=== PATIENT | female | born 1945 | race Caucasian/White ===

== ENCOUNTER 2017-10-13 18:50 | Inpatient (IN) | payer MEDICARE ==
[~2017-10-13] VITALS: Ht 157.5 cm; Wt 70.3 kg
[2017-10-13 19:28] LABS: BASOPHILS 1.3 % (0-2); EOSINOPHILS 2.9 % (0-7); HEMATOCRIT 44.3 % (36.0-48.0); HEMOGLOBIN 14.9 g/dL (12-16); IMMATURE GRANULOCYTES 0.4 % (0-5); LYMPHOCYTES 19.4 % (15-50); MCH 33.6 pg (26.0-34.0); MCHC 33.6 g/dL (31.0-37.0); MCV 99.8 fL (80.0-100.0); MEAN PLATELET VOLUME 9.9 fL (7.4-10.4); MONOCYTES 12.9 % (2-11); NEUTROPHILS 63.1 % (40-80); PLATELET COUNT 218 10x3/uL (130-400); RBC 4.44 10x6/uL (4.00-5.40); RDW 12.7 % (11.5-14.5); WBC 6.8 10x3/uL (4.8-10.8)
[2017-10-13 19:51] LABS: ANION GAP 11.7 mmol/L (8-16); BILIRUBIN - TOTAL 3.56 mg/dL (0.2-1.3); CALCIUM 9.6 mg/dL (8.5-10.1); CARBON DIOXIDE 28.8 mmol/L (21.0-32.0); CREATININE - SERUM 0.9 mg/dL (0.6-1.3); POTASSIUM - SERUM 3.5 mmol/L (3.5-5.1); PROTEIN - SERUM 7.5 g/dL (6.4-8.2)
[2017-10-13 20:11] LABS: BILIRUBIN 1+ (NEGATIVE); COLOR AMBER (YELLOW); GLUCOSE NEGATIVE (NEGATIVE); KETONE SMALL mg/dL (NEGATIVE); NITRITE NEGATIVE (NEGATIVE); PROTEIN NEGATIVE (NEGATIVE)
[2017-10-13 20:12] LABS: APPEARANCE HAZY (CLEAR); RED CELLS - URINE 0-5 /hpf (0-5); SPECIFIC GRAVITY 1.005 (1.005-1.020); WHITE CELLS - URINE 0-5 /hpf (0-5)
[2017-10-13 20:13] LABS: BACTERIA FEW /hpf (NONE SEEN); EPITHELIAL CELLS 0-5 /hpf (0-5)
[2017-10-13 20:14] LABS: MUCUS >1+ /lpf (NONE SEEN)
[2017-10-14] VITALS (17 sets, daily range): BP systolic 87–121; BP diastolic 41–73; BMI 26.2
[2017-10-14 00:31] LABS: UDS - AMPHET NEGATIVE QUAL (NEGATIVE); UDS - BARB NEGATIVE QUAL (NEGATIVE); UDS - BENZO POSITIVE QUAL (NEGATIVE); UDS - COCAINE NEGATIVE QUAL (NEGATIVE); UDS - OPIATE NEGATIVE QUAL (NEGATIVE); UDS - PCP NEGATIVE QUAL (NEGATIVE); UDS - THC NEGATIVE QUAL (NEGATIVE)
[2017-10-15] VITALS (10 sets, daily range): BP systolic 98–128; BP diastolic 54–76; Ht 157.5 cm; Wt 70.3 kg
[2017-10-15 04:11] LABS: EOSINOPHILS 4.8 % (0-7); IMMATURE GRANULOCYTES 0.8 % (0-5); LYMPHOCYTES 27.3 % (15-50); MCH 32.6 pg (26.0-34.0); MCHC 32.6 g/dL (31.0-37.0); MEAN PLATELET VOLUME 10.3 fL (7.4-10.4); MONOCYTES 13.9 % (2-11); NEUTROPHILS 52.2 % (40-80)
[2017-10-15 04:19] LABS: HEMOGLOBIN 11.4 g/dL (12-16); PLATELET COUNT 135 10x3/uL (130-400)
[2017-10-15 04:43] LABS: ANION GAP 11.4 mmol/L (8-16); BILIRUBIN - TOTAL 1.42 mg/dL (0.2-1.3); CALCIUM 7.9 mg/dL (8.5-10.1); CARBON DIOXIDE 25.7 mmol/L (21.0-32.0); CREATININE - SERUM 0.8 mg/dL (0.6-1.3); MAGNESIUM - SERUM 2.4 mg/dL (1.8-2.4); PHOSPHOROUS 3.7 mg/dL (2.5-4.9); POTASSIUM - SERUM 3.1 mmol/L (3.5-5.1)
[2017-10-15 04:51] LABS: ALBUMIN 2.6 g/dL (3.4-5.0); PROTEIN - SERUM 5.1 g/dL (6.4-8.2)
[2017-10-15] MEDS ORDERED: ZYPREXA2.5 MG PO (16:03)
[2017-10-15] MEDS ORDERED: LIBRIUM25 MG PO (16:04)
== END 2017-10-15 14:45 | DRG 897 ==
LOC: D.ER 18:50 → D.ICU 10-14 01:33 → D.EDHOLD 10-14 01:33 → D.ICU 10-14 05:07
PROVIDERS: Family Medicine
DX: F10.231 Alcohol dependence with withdrawal delirium (principal); K70.0 Alcoholic fatty liver; F03.90 Unspecified dementia, unspecified severity, without behavioral disturbance, psychotic disturbance, mood disturbance, and anxiety; R40.2363 Coma scale, best motor response, obeys commands, at hospital admission; R40.2143 Coma scale, eyes open, spontaneous, at hospital admission; R40.2243 Coma scale, best verbal response, confused conversation, at hospital admission

== ENCOUNTER 2017-10-15 14:51 | Inpatient (IN) | payer MEDICARE ==
[~2017-10-15] VITALS: Ht 160 cm; Wt 61.4 kg
--- NOTE | ~2017-10-15 | PN ---
PATIENT:JUDSON COTTON MEDICAL RECORD: [id number] LOCATION:DANA Briscoe ADMISSION DATE: 10/15/17 PROGRESS NOTE DATE OF SERVICE: 10/20/2017 SUBJECTIVE: The patient's case was discussed with staff. She has no new complaint. OBJECTIVE: The patient is in good behavioral control with limited insight about her condition. She does tolerate her medicines well. ASSESSMENT: No change in diagnoses. PLAN: Supportive and educational interventions were made. The patient is awake, alert, very cooperative, but severely impaired cognitively. She has not had any change in her condition since I changed her benzodiazepine from Librium to Klonopin as described in yesterday's note. ASSESSMENT: No change in diagnoses. PLAN: Current medicines will be maintained. Long-term prognosis is guarded. TRANSINT:[id number] Voice Confirmation ID: [id number] DOCUMENT ID: [id number] BRUNILDA JASON MD at 1040 CC: [id number] DICTATION DATE: 10/20/17 1042 COMMAND POST SUPERINTENDENT: 10/20/17 1106 ADM IN [facility] [address] [place] [address]
--- NOTE | ~2017-10-15 | PN ---
PATIENT:JUDSON COTTON MEDICAL RECORD: [id number] LOCATION:DANA SongAinsley ADMISSION DATE: 10/15/17 PROGRESS NOTE DATE OF SERVICE: 11/04/2017 SUBJECTIVE: The patient's case was discussed with staff. She has no new complaint. OBJECTIVE: The patient is in good behavioral control with limited insight about her condition. She continues to be on contact isolation, which she does not follow through with very effectively. ASSESSMENT: No change in diagnoses. PLAN: The patient will be maintained on current medicines. Her long-term prognosis is guarded. TRANSINT:[id number] Voice Confirmation ID: [id number] DOCUMENT ID: [id number] BRUNILDA JASON MD at 1059 CC: [id number] DICTATION DATE: 11/04/17 1059 PATIENT PLACEMENT COORDINATOR: 11/04/17 1108 ADM IN [place] [id number] [place] [address]
--- NOTE | ~2017-10-15 | PN ---
PATIENT:JUDSON COTTON MEDICAL RECORD: [id number] LOCATION:DANA Briscoe ADMISSION DATE: 10/15/17 PROGRESS NOTE DATE OF SERVICE: 10/29/2017 SUBJECTIVE: The patient's case was discussed with staff. She has no new complaint. OBJECTIVE: The patient denies intent to harm herself or others. She generally tolerates her medicines well. Eye contact is fair. ASSESSMENT: No change in diagnoses. PLAN: Current medicines have been reviewed. The patient will have her Zoloft increased. She certainly has some significant character pathology that is present and probably has been lifelong. There is a great deal of manipulating, staff splitting, attention seeking, help rejecting behaviors. As a couple of specific examples when asked if she is having any discomfort, she told me no, but then when she gets her family on the phone or visitation, she says that she has back pain that no one will pay attention to. She also tells me today that she has a headache because she has fallen and hit her head. Staff says that she has not fallen. She has been with them the whole time and it has not happened. She also gets her walker and walks across the room. I observed her as she uses a desk and her walker, gets down on her knees, lays on the floor and then turns over her walker and says she has fallen. She had not fallen. She voluntarily got on the floor and with some assisted, she got up and then continued on her way across the day room. These are just several examples of the kind of behavior I am talking about. I do not think these are going to be very amenable to pharmacologic interventions. 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 She needs 21-snrj-e-day supervision. The behaviors that I am talking about are going to make it complicated wherever she is managed. Unfortunately, her family is concerned whenever she reports something that is not true and then has to call and they are very upset and they have to be reassured that no, she did not fall and no, she is not complaining of any back pain to us. 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 TRANSINT:[id number] Voice Confirmation ID: [id number] DOCUMENT ID: [id number] BRUNILDA JASON MD at 1434 CC: [id number] DICTATION DATE: 10/29/17 1533 CAREER DEVELOPMENT COORDINATOR/TEACHER: 10/29/17 1729 ADM IN [facility] [address] [place] [address]
--- NOTE | ~2017-10-15 | PSY ---
PATIENT NAME:JUDSON COTTON MEDICAL RECORD: [id number] : 43 LOCATION:MarinaXENIA Briscoe7 ADMISSION DATE: 10/15/17 ACCOUNT: [id number] PSYCHIATRIC EVALUATION DATE OF EVALUATION: 10/16/17 PSYCHIATRIC EVALUATION IDENTIFYING DATA: The patient is 72 years old and she is admitted to the hospital on a voluntary basis. CHIEF COMPLAINT: None. HISTORY OF PRESENT ILLNESS: The patient was initially brought to the Emergency Room because of mental status changes. She apparently had been a heavy drinker and her son had gone to the house and emptied out all of her liquor. Apparently, after this, she went into DTs. She subsequently had an admission to the hospital because she was so confused and agitated, but there was some concern about neurologic issues. She was subsequently transferred here. The patient tells me she has not drank for years, which contradicts other sources of information. She then later says that she has cut back dramatically and only drinks a small amount. When asked about this, she says maybe 1-2 cans of beer a week. She did not have a positive blood alcohol level on admission. PAST MEDICAL HISTORY: Somewhat difficult to obtain as the patient is not a good historian, but she denies any significant medical problems. Indeed, she is not taking any medications other than those that have been given to her at this time for alcohol withdrawal. PAST PSYCHIATRIC HISTORY: Significant for alcoholism. FAMILY HISTORY: Unknown. ALLERGIES: No known drug allergies. CURRENT MEDICATIONS: Include potassium, Zyprexa, Librium. SOCIAL HISTORY: The patient tells me she has been , but is . She says she has 3 adult children. She says she is retired from [employer] and that she lives alone. She says she has a neighbor who handles her bills for her in that in exchange she does some work in the neighbor's garden. She denies a history of drug abuse. She does confirm a history of alcohol use, but says that it is remote and that there has not been any for a long time. MENTAL STATUS EXAMINATION: The patient is awake; alert; and oriented to person and place, but not to time or situation. She says the year is 1996 and that the month is March. She says that she is here because she has some weakness in her legs and that she is going to have that evaluated here. She denies any intent to harm herself or others and denies overt psychotic symptoms. ASSETS: An ability to make her needs known. LIABILITIES: Limited insight. DIAGNOSTIC IMPRESSION: AXIS I: 1. Rule out alcohol-related dementia. 2. Alcohol-related delirium. AXIS II: Deferred. AXIS III: None. AXIS III: Moderate stressors. AXIS V: Global assessment of functioning is 30. PLAN: At this time, the patient is admitted to the hospital for comprehensive medical, psychological, and social evaluation. She will be treated with both mood stabilizing and memory enhancing medications. Her long-term prognosis is guarded. TRANSINT:[id number] Voice Confirmation ID: [id number] DOCUMENT ID: [id number] BRUNILDA JASON MD at 1315 CC: [id number] DICTATION DATE: 10/16/17 1453 MEDICAL OFFICE ADMINISTRATOR: 10/16/17 1521 ADM IN [place] [id number] [place] [id number]
--- NOTE | ~2017-10-15 | PN ---
PATIENT:JUDSON COTTON MEDICAL RECORD: [id number] LOCATION:QIANADejuan SongAinsley ADMISSION DATE: 10/15/17 PROGRESS NOTE DATE OF SERVICE: 11/06/2017 SUBJECTIVE: The patient's case was discussed with staff. She has no new complaint. OBJECTIVE: The patient is tolerating her medications well. She has limited insight about her condition. She has a depressed mood, but no thoughts of self-harm. Her long-term prognosis is guarded. ASSESSMENT: No change in diagnosis. PLAN: The patient will be maintained on Zoloft, but the dose will be increased to 100 mg daily. I anticipate that she can be transitioned out of the hospital soon if this level of improvement is maintained. TRANSINT:[id number] Voice Confirmation ID: [id number] DOCUMENT ID: [id number] BRUNILDA JASON MD at 1339 CC: [id number] DICTATION DATE: 11/06/17 1427 PROFESSOR OF FRENCH: 11/06/17 1433 ADM IN [place] [id number] [place] [id number]
--- NOTE | ~2017-10-15 | PN ---
PATIENT:JUDSON COTTON MEDICAL RECORD: [id number] LOCATION:NohemiPARVEZDejuan MarinaKyungAinsley ADMISSION DATE: 10/15/17 PROGRESS NOTE DATE OF SERVICE: 11/02/2017 SUBJECTIVE: The patient's case was discussed with staff. She has no new complaint. OBJECTIVE: The patient is in good behavioral control with limited insight about her condition. She is tolerating her medicines well. She is severely impaired cognitively. ASSESSMENT: No change in diagnoses. PLAN: Brief supportive and educational interventions were made. The patient's long-term prognosis is guarded. TRANSINT:[id number] Voice Confirmation ID: [id number] DOCUMENT ID: [id number] BRUNILDA JASON MD at 1223 CC: [id number] DICTATION DATE: 11/02/17 1453 RAIL BENDER: 11/02/17 1506 ADM IN [place] [id number] [place] [id number]
--- NOTE | ~2017-10-15 | PN ---
PATIENT:JUDSON COTTON MEDICAL RECORD: [id number] LOCATION:DANA Briscoe ADMISSION DATE: 10/15/17 PROGRESS NOTE DATE OF SERVICE: 10/25/2017 SUBJECTIVE: The patient's case was discussed with staff. She has no new complaint. OBJECTIVE: The patient is in good behavioral control with limited insight about her condition. She is still very impaired cognitively and making delusional statements. ASSESSMENT: No change in diagnoses. PLAN: I think the patient has many depressive symptoms even though she is not reporting being depressed. I have weighed the relative risks and benefits of an antidepressant and think that it is clearly something that she might benefit from, but would have a very low risk involved in taking. Based on this thinking, I am going to give her a starting dose of Zoloft at 25 mg daily. Her long-term prognosis is guarded. TRANSINT:[id number] Voice Confirmation ID: [id number] DOCUMENT ID: [id number] BRUNILDA JASON MD at 1350 CC: [id number] DICTATION DATE: 10/25/17 1358 LEAN ENGINEER: 10/25/17 1405 ADM IN [facility] [address] [place] [address]
--- NOTE | ~2017-10-15 | PN ---
PATIENT:JUDSON COTTON MEDICAL RECORD: [id number] LOCATION:DANA SongAinsley ADMISSION DATE: 10/15/17 PROGRESS NOTE DATE OF SERVICE: 10/27/2017 SUBJECTIVE: The patient's case was discussed with staff. She has no new complaint. OBJECTIVE: The patient denies intent to harm herself or others. She generally tolerates her medicines well. Eye contact is fair. ASSESSMENT: No change in diagnoses. PLAN: Current medicines and therapies have been reviewed and will be maintained. Her long-term prognosis is guarded. TRANSINT:[id number] Voice Confirmation ID: [id number] DOCUMENT ID: [id number] BRUNILDA JASON MD at 1118 CC: [id number] DICTATION DATE: 10/27/17 1200 PAINT GRINDER [place]: 10/27/17 1347 ADM IN [facility] [address] [place] [address]
--- NOTE | ~2017-10-15 | PN ---
PATIENT:JUDSON COTTON MEDICAL RECORD: [id number] LOCATION:DANA Briscoe ADMISSION DATE: 10/15/17 PROGRESS NOTE DATE OF SERVICE: 10/19/2017 SUBJECTIVE: The patient's case was discussed with staff. She has no new complaint. OBJECTIVE: The patient is severely impaired cognitively. She is oriented to person, but is confused about the date, the situation, the circumstances, and her location. Nevertheless, she has been fairly pleasant. She has not been observed to have any more aggression. There certainly is no longer any question in my mind that this is an alcohol-related dementia as opposed to a possible delirium. ASSESSMENT: No change in diagnoses. PLAN: The patient, when she was initially admitted, had some symptoms that were consistent with an alcohol-related dementia and some that were consistent with an alcohol-related delirium. Those are not mutually exclusive diagnoses. A demented person can have delirium or a delirious person can certainly be demented; but after 5 days of hospitalization here, I am convinced that she is not having any delirious symptoms at all and this is all an alcohol-related dementia. I think she is going to benefit from long-term use of a benzodiazepine to help calm her. She has a high tolerance because of the cross tolerance between alcohol and benzodiazepines. She has been taking Librium. I am going to change that to Klonopin. It has a furnace cleaner metabolism. It also has some mood stabilizing properties that the Librium does not. I will monitor her carefully. I hope I can taper her down a little bit on this dose of Klonopin before. She is transitioned to a group home, but as long as she is in a structured controlled environment where she does not have access to the medication, I think it is reasonable to treat her with it. I am sure she has a long-standing underlying anxiety disorder that she was probably trying to self-medicate with alcohol, but she is certainly much calmer and not at all affected by the Librium that she has been receiving and I suspect it will be the same with the Klonopin. TRANSINT:[id number] Voice Confirmation ID: [id number] DOCUMENT ID: [id number] BRUNILDA JASON MD at 1014 CC: [id number] DICTATION DATE: 10/19/17 1738 CAMP COUNSELOR: 10/19/17 1812 ADM IN [facility] [address] [facility]
--- NOTE | ~2017-10-15 | PN ---
PATIENT:JUDSON COTTON MEDICAL RECORD: [id number] LOCATION:DANA Briscoe ADMISSION DATE: 10/15/17 PROGRESS NOTE DATE OF SERVICE: 11/07/2017 SUBJECTIVE: The patient's case was discussed with staff. She has no new complaint. OBJECTIVE: The patient is in good behavioral control. She is severely impaired cognitively. She has not been aggressive with staff. ASSESSMENT: No change in diagnoses. PLAN: The patient will be transitioned out of the hospital tomorrow. Her long-term prognosis is guarded. I anticipate she can have followup with the primary care senior care physician. TRANSINT:[id number] Voice Confirmation ID: [id number] DOCUMENT ID: [id number] BRUNILDA JASON MD at 1234 CC: [id number] DICTATION DATE: 11/07/17 1401 ELECTRICAL TECH: 11/07/17 1414 ADM IN [facility] [address] [place] [address]
--- NOTE | ~2017-10-15 | PN ---
PATIENT:JUDSON COTTON MEDICAL RECORD: [id number] LOCATION:DANA Briscoe ADMISSION DATE: 10/15/17 PROGRESS NOTE DATE OF SERVICE: 10/18/2017 SUBJECTIVE: The patient's case was discussed with staff. She has no new complaint. OBJECTIVE: The patient is extremely confused. She is wanting to walk home and says she has a coat with her car keys in it that she cannot find. She is not oriented except to person. ASSESSMENT: No change in diagnoses. PLAN: This patient has a dementia associated with alcohol use. This is not a delirium. She is going to require 15-wybq-n-day supervision. At this point, I would like to place her in the least restrictive environment that can meet her needs, but she also needs further pharmacologic management. She is receiving 75 mg a day of Librium and she is still agitated. I do not know if she is going to be manageable without a benzodiazepine, but if the answer is no, I would prefer a different one, say, Klonopin on a scheduled basis as long as she is in an environment where the medication is supervised I am not going to strongly object to it. TRANSINT:[id number] Voice Confirmation ID: [id number] DOCUMENT ID: [id number] BRUNILDA JASON MD at 1710 CC: [id number] DICTATION DATE: 10/18/17 1411 SMOKE ROOM OPERATOR: 10/18/17 1418 ADM IN [facility] [address] [place] [address]
--- NOTE | ~2017-10-15 | PN ---
PATIENT:JUDSON COTTON MEDICAL RECORD: [id number] LOCATION:DANA SongAinsley ADMISSION DATE: 10/15/17 PROGRESS NOTE DATE OF SERVICE: 11/05/2017 SUBJECTIVE: The patient's case was discussed with staff. She has no new complaint. OBJECTIVE: The patient is in good behavioral control with limited insight about her condition. She tolerates her medicines well. Eye contact is poor. ASSESSMENT: No change in diagnoses. PLAN: Brief supportive and educational interventions were made. Long-term prognosis is guarded. TRANSINT:[id number] Voice Confirmation ID: [id number] DOCUMENT ID: [id number] BRUNILDA JASON MD at 1406 CC: [id number] DICTATION DATE: 11/05/17 1139 HEALTH AND SAFETY ADVISOR: 11/05/17 1201 ADM IN [place] [id number] [place] [address]
--- NOTE | ~2017-10-15 | PN ---
PATIENT:JUDSON COTTON MEDICAL RECORD: [id number] LOCATION:DANA Song112 ADMISSION DATE: 10/15/17 PROGRESS NOTE DATE OF SERVICE: 10/26/2017 SUBJECTIVE: The patient's case was discussed with staff. She has no new complaint. OBJECTIVE: The patient is in good behavioral control, but severely impaired cognitively. ASSESSMENT: No change in diagnoses. PLAN: Brief supportive and educational interventions were made. Long-term prognosis is guarded. TRANSINT:[id number] Voice Confirmation ID: [id number] DOCUMENT ID: [id number] BRUNILDA JASON MD at 1129 CC: [id number] DICTATION DATE: 10/26/17 1426 COMMERCIAL OCEAN CLAMMER: 10/26/17 1429 ADM IN [address] [address]
--- NOTE | ~2017-10-15 | PN ---
PATIENT:JUDSON COTTON MEDICAL RECORD: [id number] LOCATION:DANA SongAinsley ADMISSION DATE: 10/15/17 PROGRESS NOTE DATE OF SERVICE: 11/08/2017 SUBJECTIVE: The patient's case was discussed with staff. She has no new complaint. OBJECTIVE: The patient is in good behavioral control, but quite confused. ASSESSMENT: No change in diagnoses. PLAN: The patient will be transitioned back to the long term today. She does not represent an acute danger to herself or others and can reasonably be managed in the long term environment. TRANSINT:[id number] Voice Confirmation ID: [id number] DOCUMENT ID: [id number] BRUNILDA JASON MD at 1222 CC: [id number] DICTATION DATE: 11/08/17 1244 SHAKER OUT: 11/08/17 1253 DIS IN 11/08/17 [place] [id number] [place] [address]
--- NOTE | ~2017-10-15 | PN ---
PATIENT:JUDSON COTTON MEDICAL RECORD: [id number] LOCATION:DANA Briscoe ADMISSION DATE: 10/15/17 PROGRESS NOTE DATE OF SERVICE: 10/17/2017 SUBJECTIVE: The patient's case was discussed with staff. She has no new complaint. OBJECTIVE: The patient has limited insight about her condition and generally tolerates her medicines well. She continues to insist that she does not drink or has not done any serious drinking for a long time, although she is not oriented to time, so the information is of questionable reliability. She is not showing any autonomic hypersensitivity, but she is quite impaired. She is not eating well. ASSESSMENT: No change in diagnoses. PLAN: The patient has some symptoms consistent with an alcohol withdrawal delirium, but she has other symptoms that are not consistent with it. For example, she has the hallucinations and mental confusion, but the mental confusion does not seem to wax and wane and there is no elevation in her vital signs that would be consistent with this nor is there increase in psychomotor activity. I am strongly suspecting that the patient was demented or becoming more seriously demented for a long time prior to this hospitalization. She has very limited insight. She is not eating well, which is also consistent with an advanced dementia. I am going to start her on Megace to stimulate her appetite and I will continue to treat her with the Trilafon for its antipsychotic effects and the Librium for the alcohol withdrawal symptoms. TRANSINT:[id number] Voice Confirmation ID: [id number] DOCUMENT ID: [id number] BRUNILDA JASON MD at 1329 CC: [id number] DICTATION DATE: 10/17/17 1346 GAMING PIT BOSS: 10/17/17 1445 ADM IN [place] [id number] [place] [address]
--- NOTE | ~2017-10-15 | PN ---
PATIENT:JUDSON COTTON MEDICAL RECORD: [id number] LOCATION:DANA GrayKyungAinsley ADMISSION DATE: 10/15/17 PROGRESS NOTE DATE OF SERVICE: 10/31/2017 SUBJECTIVE: The patient's case was discussed with staff. She has no new complaint. OBJECTIVE: The patient denies intent to harm herself or others. She generally tolerates her medicines well. Eye contact is fair. ASSESSMENT: No change in diagnoses. PLAN: Brief supportive and educational interventions were made. Long-term prognosis is guarded. She apparently has been approved by at least 1 long-term and I would anticipate transitioning her out of the hospital soon if this level of improvement is maintained. On the whole, she is significantly better today than she was the past few days. TRANSINT:[id number] Voice Confirmation ID: [id number] DOCUMENT ID: [id number] BRUNILDA JASON MD at 1053 CC: [id number] DICTATION DATE: 10/31/17 1427 COUNSELING DEPARTMENT CHAIR: 10/31/17 1433 ADM IN [place] [id number] [place] [id number]
--- NOTE | ~2017-10-15 | PN ---
PATIENT:JUDSON COTTON MEDICAL RECORD: [id number] LOCATION:DANA Brisoce ADMISSION DATE: 10/15/17 PROGRESS NOTE DATE OF SERVICE: 10/28/2017 SUBJECTIVE: The patient's case was discussed with staff. She has no new complaint. OBJECTIVE: The patient is in good behavioral control with limited insight about her condition. She does tolerate her medicines well. Eye contact is fair. ASSESSMENT: No change in diagnoses. PLAN: Brief supportive and educational interventions were made. The patient is eating and sleeping reasonably well, and if this level of improvement continues, I anticipate she can be transitioned out of the hospital soon. TRANSINT:[id number] Voice Confirmation ID: [id number] DOCUMENT ID: [id number] BRUNILDA JASON MD at 1459 CC: [id number] DICTATION DATE: 10/28/17 1143 DEVICE REPAIR TECHNICIAN: 10/28/17 1624 ADM IN [place] [id number] [place] [address]
--- NOTE | ~2017-10-15 | PN ---
PATIENT:JUDSON COTTON MEDICAL RECORD: [id number] LOCATION:DANA SongAinsley ADMISSION DATE: 10/15/17 PROGRESS NOTE DATE OF SERVICE: 11/01/2017 SUBJECTIVE: The patient's case was discussed with staff. She has no new complaint. OBJECTIVE: The patient has pretty limited insight about her situation. She generally does tolerate her medicines well. She is sometimes difficult to redirect. On the whole, she is better. ASSESSMENT: No change in diagnoses. PLAN: The patient did not sleep very well last night. She is sleeping some during the day. I am going to consolidate her Seroquel to a single bedtime dose. TRANSINT:[id number] Voice Confirmation ID: [id number] DOCUMENT ID: [id number] BRUNILDA JASON MD at 1322 CC: [id number] DICTATION DATE: 11/01/17 1204 GEOLOGY SCIENTIST: 11/01/17 1215 ADM IN [place] [id number] [place] [address]
--- NOTE | ~2017-10-15 | PN ---
PATIENT:JUDSON COTTON MEDICAL RECORD: [id number] LOCATION:DANA GrayKyungAinsley ADMISSION DATE: 10/15/17 PROGRESS NOTE DATE OF SERVICE: 10/21/2017 SUBJECTIVE: The patient's case was discussed with staff. She has no new complaint. OBJECTIVE: The patient denies intent to harm herself or others. She does seem much more agitated than she was yesterday. This may be related to the change in her benzodiazepine or she could just simply be having a bad day. I am going to just monitor the current medicines for today and will make a decision about this tomorrow. TRANSINT:[id number] Voice Confirmation ID: [id number] DOCUMENT ID: [id number] BRUNILDA JASON MD at 1333 CC: [id number] DICTATION DATE: 10/21/17 1116 RELEASE OF INFORMATION CLERK: 10/21/17 1235 ADM IN [facility] [address] [place] [address]
--- NOTE | ~2017-10-15 | PN ---
PATIENT:JUDSON COTTON MEDICAL RECORD: [id number] LOCATION:DANA Song112 ADMISSION DATE: 10/15/17 PROGRESS NOTE DATE OF SERVICE: 10/22/2017 SUBJECTIVE: The patient's case was discussed with staff. She has no new complaint. OBJECTIVE: The patient is convinced that another patient is her . He thinks that she is his . She has been very upset thinking that we are somehow holding her here and keeping them apart. They spent the whole day in the dayroom together. When trying to explain to her that that is not her and that he probably just looks like her , she bursts out into tears and sobs inconsolably. She denies that she would seek to harm herself. She does say that she is very unhappy. She is visibly shaking and actually has been restless in the past couple of days. ASSESSMENT: No change in diagnoses. PLAN: The patient is an alcoholic. She is taking 3 mg a day of Klonopin. She was taking 75 mg a day of Librium. I changed her to Klonopin, I think her condition has deteriorated since doing so. I have made the decision to keep her on a benzodiazepine for what is probably a lifelong anxiety disorder that she was self-medicating with alcohol and will allow her to take the benzo as long as she is in an environment such as a fpc where she does not have free access to it. She will have her dose increased to 2 mg of Klonopin twice a day and I anticipate this will relieve some of the anxiety she is currently having. TRANSINT:[id number] Voice Confirmation ID: [id number] DOCUMENT ID: [id number] BRUNILDA JASON MD at 1406 CC: [id number] DICTATION DATE: 10/22/17 1420 PUBLIC HEALTH SPECIALIST: 10/22/17 1552 ADM IN [place] [place] [address]
--- NOTE | ~2017-10-15 | PN ---
PATIENT:JUDSON COTTON MEDICAL RECORD: [id number] LOCATION:DANA SongAinsley ADMISSION DATE: 10/15/17 PROGRESS NOTE DATE OF SERVICE: 10/23/2017 SUBJECTIVE: The patient's case was discussed with staff. She has no new complaint. OBJECTIVE: The patient is in good behavioral control with limited insight about her condition. She tolerates her medicines well. ASSESSMENT: No change in diagnoses. PLAN: Current medicines have been reviewed and will be maintained. Although the patient is still agitated at times, I do not think the change in her Klonopin has had an opportunity to become effective. She is going to be monitored for clinical changes. Additional medication management is going to be necessary or may well be necessary. TRANSINT:[id number] Voice Confirmation ID: [id number] DOCUMENT ID: [id number] BRUNILDA JASON MD at 1203 CC: [id number] DICTATION DATE: 10/23/17 1523 DEPOSITION REPORTER: 10/23/17 1602 ADM IN [id number] [place] [address]
--- NOTE | ~2017-10-15 | PN ---
PATIENT:JUDSON COTTON MEDICAL RECORD: [id number] LOCATION:DANA GrayKyungAinsley ADMISSION DATE: 10/15/17 PROGRESS NOTE DATE OF SERVICE: 10/30/2017 SUBJECTIVE: The patient's case was discussed with staff. She has no new complaint. OBJECTIVE: The patient is in good behavioral control with limited insight about her condition. She tolerates her medicines well. ASSESSMENT: No change in diagnoses. PLAN: Supportive and educational interventions were made. Long-term prognosis is guarded. It does appear the patient has a urinary tract infection and that would explain her relative worsening of condition generally over the past few days. I am optimistic that once this is treated, she can reasonably be transitioned out of the hospital. TRANSINT:[id number] Voice Confirmation ID: [id number] DOCUMENT ID: [id number] BRUNILDA JASON MD at 1301 CC: [id number] DICTATION DATE: 10/30/17 1453 STUFFING MACHINE OPERATOR: 10/30/17 1506 ADM IN [address] [place] [address]
--- NOTE | ~2017-10-15 | PN ---
PATIENT:JUDSON COTTON MEDICAL RECORD: [id number] LOCATION:DANA aMrinaKyungAinsley ADMISSION DATE: 10/15/17 PROGRESS NOTE DATE OF SERVICE: 10/24/2017 SUBJECTIVE: The patient's case was discussed with staff. She has no new complaint. OBJECTIVE: The patient denies intent to harm herself or others. She generally tolerates her medicines well. She is quite confused. She is not sleeping well. She is delusional about various men being her . ASSESSMENT: No change in diagnoses. PLAN: The patient's Trilafon does not seem to be helping. I am going to stop it and start her on a low dose of Seroquel for her thought disorganization. Her long-term prognosis is guarded. TRANSINT:[id number] Voice Confirmation ID: [id number] DOCUMENT ID: [id number] BRUNILDA JASON MD at 1323 CC: [id number] DICTATION DATE: 10/24/17 1228 BILLET HEATER OPERATOR: 10/24/17 1252 ADM IN [place] [place] [address]
[2017-10-15] MEDS ORDERED: ZYPREXA2.5 MG PO (16:03)
[2017-10-15] MEDS ORDERED: LIBRIUM25 MG PO (16:04)
[2017-10-16 06:30] VITALS: BP 114/64
[2017-10-16 06:56] VITALS: BP 117/72
[2017-10-16 07:00] VITALS: BP 126/60
[2017-10-16 07:24] LABS: BASOPHILS 1.2 % (0-2); EOSINOPHILS 5.2 % (0-7); HEMATOCRIT 35.5 % (36.0-48.0); HEMOGLOBIN 11.6 g/dL (12-16); IMMATURE GRANULOCYTES 0.5 % (0-5); LYMPHOCYTES 22.4 % (15-50); MCH 32.8 pg (26.0-34.0); MCHC 32.7 g/dL (31.0-37.0); MCV 100.3 fL (80.0-100.0); MEAN PLATELET VOLUME 10.3 fL (7.4-10.4); MONOCYTES 16.4 % (2-11); NEUTROPHILS 54.3 % (40-80); PLATELET COUNT 127 10x3/uL (130-400); RBC 3.54 10x6/uL (4.00-5.40); RDW 12.9 % (11.5-14.5)
[2017-10-16 07:54] LABS: ALBUMIN 2.8 g/dL (3.4-5.0); ALKALINE PHOSPHATASE 59 U/L (46-116); ALT (SGPT) 26 U/L (10-68); CALC OSMOLALITY 286 mosm/kg (275-300); CALCIUM 8.2 mg/dL (8.5-10.1); CHLORIDE - SERUM 111 mmol/L (98-107); CREATININE - SERUM 0.7 mg/dL (0.6-1.3); GLUCOSE 76 mg/dL (74-106); PROTEIN - SERUM 5.4 g/dL (6.4-8.2); SODIUM 146 mmol/L (136-145); UREA NITROGEN 5 mg/dL (7-18); eGFR NON AFRICAN AMERICAN 87 mL/min (90-120)
[2017-10-16 07:55] LABS: POTASSIUM - SERUM 3.1 mmol/L (3.5-5.1)
[2017-10-16 11:25] VITALS: Ht 160 cm; Wt 61.4 kg
[2017-10-16 19:41] VITALS: BP 143/88
[2017-10-17 06:26] LABS: CALCIUM 8.8 mg/dL (8.5-10.1); CARBON DIOXIDE 23.6 mmol/L (21.0-32.0); CREATININE - SERUM 0.8 mg/dL (0.6-1.3)
[2017-10-17 06:27] LABS: POTASSIUM - SERUM 3.6 mmol/L (3.5-5.1)
[2017-10-17 09:22] LABS: FOLATE (FOLIC ACID) - SERUM 11.6 ng/mL (>3.0)
[2017-10-17 10:22] VITALS: BP 114/67
[2017-10-17 20:15] VITALS: BP 108/58
[2017-10-18 09:00] VITALS: BP 94/56
[2017-10-18 19:23] VITALS: BP 114/69
[2017-10-19 09:14] VITALS: BP 133/68
[2017-10-19 20:28] VITALS: BP 132/71
[2017-10-20 07:58] VITALS: BP 109/60
[2017-10-20 10:12] VITALS: BP 109/60
[2017-10-20 20:39] VITALS: BP 116/56
[2017-10-21 07:00] VITALS: BP 118/61
[2017-10-21 18:44] VITALS: BP 134/57; BP 134/67
[2017-10-21 18:45] VITALS: BP 141/66
[2017-10-21 20:05] VITALS: BP 114/65
[2017-10-22 07:00] VITALS: BP 128/80
[2017-10-22 07:14] LABS: BASOPHILS 1.7 % (0-2); EOSINOPHILS 6.9 % (0-7); HEMOGLOBIN 12.2 g/dL (12-16); IMMATURE GRANULOCYTES 0.6 % (0-5); LYMPHOCYTES 25.4 % (15-50); MONOCYTES 19.1 % (2-11); NEUTROPHILS 46.3 % (40-80); PLATELET COUNT 139 10x3/uL (130-400); RDW 13.4 % (11.5-14.5); WBC 3.5 10x3/uL (4.8-10.8)
[2017-10-22 12:16] LABS: ANION GAP 12.5 mmol/L (8-16); BILIRUBIN - TOTAL 1.14 mg/dL (0.2-1.3); CALCIUM 8.4 mg/dL (8.5-10.1); CREATININE - SERUM 0.8 mg/dL (0.6-1.3); POTASSIUM - SERUM 3.5 mmol/L (3.5-5.1)
[2017-10-22 19:25] VITALS: BP 112/54
[2017-10-23 08:49] VITALS: BP 105/47
[2017-10-24 08:05] VITALS: BP 116/64
[2017-10-24 20:55] VITALS: BP 146/69
[2017-10-25 11:03] VITALS: BP 124/66
[2017-10-25 20:05] VITALS: BP 116/48
[2017-10-26 07:46] VITALS: BP 129/77
[2017-10-26 20:35] VITALS: BP 107/47
[2017-10-27 09:37] VITALS: BP 122/67
[2017-10-27 19:21] VITALS: BP 122/76
[2017-10-28 08:00] VITALS: BP 121/73
[2017-10-28 19:25] VITALS: BP 118/64
[2017-10-29 08:15] VITALS: BP 131/77
[2017-10-29 13:55] LABS: ALBUMIN 3.3 g/dL (3.4-5.0); ANION GAP 10.1 mmol/L (8-16); BILIRUBIN - DIRECT 0.14 mg/dL (0.00-0.30); BILIRUBIN - INDIRECT 0.32 mg/dL (0.00-1.00); BILIRUBIN - TOTAL 0.46 mg/dL (0.2-1.3); CALCIUM 8.5 mg/dL (8.5-10.1); CARBON DIOXIDE 27.5 mmol/L (21.0-32.0); CREATININE - SERUM 0.9 mg/dL (0.6-1.3); POTASSIUM - SERUM 3.6 mmol/L (3.5-5.1); PROTEIN - SERUM 6.4 g/dL (6.4-8.2)
[2017-10-29 19:34] VITALS: BP 99/40
[2017-10-30 07:55] VITALS: BP 148/78
[2017-10-30 14:15] LABS: BASOPHILS 2.3 % (0-2); HEMATOCRIT 35.8 % (36.0-48.0); HEMOGLOBIN 11.8 g/dL (12-16); MCH 32.6 pg (26.0-34.0); MCV 98.9 fL (80.0-100.0); MEAN PLATELET VOLUME 10.2 fL (7.4-10.4); MONOCYTES 15.5 % (2-11); NEUTROPHILS 59.2 % (40-80); RBC 3.62 10x6/uL (4.00-5.40); RDW 13.2 % (11.5-14.5); WBC 5.3 10x3/uL (4.8-10.8)
[2017-10-30 14:29] LABS: PLATELET COUNT 263 10x3/uL (130-400)
[2017-10-30 22:01] VITALS: BP 123/62
[2017-10-30 23:30] LABS: APPEARANCE CLEAR (CLEAR); BILIRUBIN NEGATIVE (NEGATIVE); COLOR YELLOW (YELLOW); GLUCOSE NEGATIVE (NEGATIVE); KETONE NEGATIVE (NEGATIVE); NITRITE NEGATIVE (NEGATIVE); PROTEIN NEGATIVE (NEGATIVE); UROBILINOGEN NORMAL (NORMAL)
[2017-10-30 23:32] LABS: BACTERIA FEW /hpf (NONE SEEN); EPITHELIAL CELLS 0-5 /hpf (0-5); RED CELLS - URINE 0-5 /hpf (0-5); WHITE CELLS - URINE 0-5 /hpf (0-5)
[2017-10-31 09:00] VITALS: BP 114/67
[2017-10-31 19:06] VITALS: BP 148/62
[2017-11-01 10:35] VITALS: BP 118/68
[2017-11-01 22:38] VITALS: BP 139/75
[2017-11-02 10:25] VITALS: BP 124/66
[2017-11-02 21:17] VITALS: BP 100/47
[2017-11-03 10:13] VITALS: BP 120/76
[2017-11-03 21:12] VITALS: BP 131/64
[2017-11-04 09:29] VITALS: BP 120/78
[2017-11-04 19:27] VITALS: BP 132/65
[2017-11-05 08:00] VITALS: BP 110/52
[2017-11-05 19:17] VITALS: BP 103/74
[2017-11-06 08:00] VITALS: BP 110/69
[2017-11-06 20:15] VITALS: BP 124/43
[2017-11-07 10:53] VITALS: BP 140/68
[2017-11-07] MEDS ORDERED: ZOLOFT100 MG PO (14:02)
[2017-11-07] MEDS ORDERED: LEVAQUIN500 MG PO (14:02)
[2017-11-07] MEDS ORDERED: MEGACE40 MG PO (14:02)
[2017-11-07] MEDS ORDERED: ARICEPT5 MG PO (14:02)
[2017-11-07] MEDS ORDERED: SEROQUEL25 MG PO (14:02)
[2017-11-07] MEDS ORDERED: KLONOPIN1 MG PO (14:03)
[2017-11-07] MEDS ORDERED: CHRONULAC30 ML PO (14:03)
[2017-11-07] MEDS ORDERED: FLORAJEN3 CAPS460 MG PO (14:03)
[2017-11-07] MEDS ORDERED: THERAGRAN M [BK1 TAB PO (14:03)
[2017-11-07 19:53] VITALS: BP 106/58
[2017-11-08 11:17] VITALS: BP 174/84
== END 2017-11-08 10:45 | DRG 897 ==
LOC: D.PSYCH 14:51
PROVIDERS: Family Medicine; Psychiatry & Neurology Psychiatry
DX: F10.27 Alcohol dependence with alcohol-induced persisting dementia (principal); N39.0 Urinary tract infection, site not specified; R26.89 Other abnormalities of gait and mobility; E87.6 Hypokalemia; D64.9 Anemia, unspecified; F41.9 Anxiety disorder, unspecified; B96.20 Unspecified Escherichia coli [E. coli] as the cause of diseases classified elsewhere; M54.5 Low back pain; S01.01XA Laceration without foreign body of scalp, initial encounter; W19.XXXA Unspecified fall, initial encounter; Y92.230 Patient room in hospital as the place of occurrence of the external cause; Z91.81 History of falling

== ENCOUNTER 2017-11-03 07:36 | Emergency (ER) | payer MEDICARE ==
[~2017-11-03] VITALS: Ht 160 cm; Wt 60.5 kg
--- NOTE | ~2017-11-03 | PN ---
PATIENT:JUDSON COTTON MEDICAL RECORD: [id number] LOCATION:D.ER ADMISSION DATE: 11/03/17 PROGRESS NOTE DATE OF SERVICE: 11/03/2017 SUBJECTIVE: The patient's case was discussed with staff. She has no new complaint. OBJECTIVE: The patient denies intent to harm herself or others. She is very partially oriented. She is eating reasonably well and is sleeping adequately. Unfortunately, her urinalysis shows an infection with Escherichia coli, she will now be on infection precautions. Also, there was some sort of malfunction with her bed alarm. She got up and fell and hit her head. She now has some skin nessa. She has had a CT and it is clear. She has actually no recollection of the fall. ASSESSMENT: No change in diagnoses. PLAN: Current medicines have been reviewed. I anticipate she can be transitioned out of the hospital once this infection resolves. Interestingly, the infection has not resulted in a dramatic change in her behavior at least so far. TRANSINT:[id number] Voice Confirmation ID: [id number] DOCUMENT ID: [id number] BRUNILDA JASON MD at 1045 CC: [id number] DICTATION DATE: 11/03/17 1244 BRAND SALES CONSULTANT: 11/03/17 1258 DEP ER 11/03/17 [facility] [address] [place] [address]
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
[~2017-11-03 07:36] MED LIST: LIBRIUM25 MG PO; ZYPREXA2.5 MG PO
[2017-11-03 08:08] VITALS: Ht 160 cm; Wt 60.5 kg
[2017-11-03 09:48] VITALS: BP 114/56
== END 2017-11-03 17:07 | disposition home or self-care (01) ==
LOC: D.ER 07:36
DX: S01.01XA Laceration without foreign body of scalp, initial encounter (principal); W18.30XA Fall on same level, unspecified, initial encounter; Y93.89 Activity, other specified; Y92.238 Other place in hospital as the place of occurrence of the external cause; F03.90 Unspecified dementia, unspecified severity, without behavioral disturbance, psychotic disturbance, mood disturbance, and anxiety

== ENCOUNTER 2017-12-29 19:10 | Emergency (ER) | payer MEDICARE ==
[~2017-12-29] VITALS: Ht 160 cm; Wt 72.7 kg
[~2017-12-29 19:10] MED LIST changes: +ARICEPT5 MG PO; +CHRONULAC30 ML PO; +FLORAJEN3 CAPS460 MG PO; +KLONOPIN1 MG PO; +LEVAQUIN500 MG PO; +MEGACE40 MG PO; +SEROQUEL25 MG PO; +THERAGRAN M [BK1 TAB PO; +ZOLOFT100 MG PO
[2017-12-29 19:17] VITALS: Ht 160 cm; Wt 72.7 kg
[2017-12-29 19:57] LABS: BASOPHILS 0.6 % (0-2); EOSINOPHILS 2.3 % (0-7); HEMATOCRIT 40.3 % (36.0-48.0); HEMOGLOBIN 13.4 g/dL (12-16); IMMATURE GRANULOCYTES 0.3 % (0-5); LYMPHOCYTES 12.7 % (15-50); MCH 30.5 pg (26.0-34.0); MCHC 33.3 g/dL (31.0-37.0); MCV 91.8 fL (80.0-100.0); MONOCYTES 11.7 % (2-11); NEUTROPHILS 72.4 % (40-80); RBC 4.39 10x6/uL (4.00-5.40); RDW 13.9 % (11.5-14.5); WBC 7.1 10x3/uL (4.8-10.8)
[2017-12-29 20:00] LABS: PLATELET COUNT 176 10x3/uL (130-400)
[2017-12-29 20:11] LABS: INR 1.13 (0.85-1.17); PROTIME 14.1 SECONDS (11.6-15.0)
[2017-12-29 20:21] LABS: ALBUMIN 3.5 g/dL (3.4-5.0); ALKALINE PHOSPHATASE 67 U/L (46-116); ALT (SGPT) 29 U/L (10-68); CALC OSMOLALITY 279 mosm/kg (275-300); CALCIUM 9.1 mg/dL (8.5-10.1); CARBON DIOXIDE 29.6 mmol/L (21.0-32.0); CHLORIDE - SERUM 102 mmol/L (98-107); CREATININE - SERUM 0.9 mg/dL (0.6-1.3); GLUCOSE 150 mg/dL (74-106); POTASSIUM - SERUM 3.8 mmol/L (3.5-5.1); PROTEIN - SERUM 7.1 g/dL (6.4-8.2); SODIUM 137 mmol/L (136-145); UREA NITROGEN 20 mg/dL (7-18); eGFR NON AFRICAN AMERICAN 65 mL/min (90-120)
[2017-12-29 20:35] LABS: CKMB 0.6 U/L (0.0-3.6); CREATINE KINASE 73 UL (21-215); MAGNESIUM - SERUM 1.9 mg/dL (1.8-2.4); TROPONIN-I < 0.017 ng/mL (0.000-0.060)
[2017-12-29 21:18] LABS: APPEARANCE CLEAR (CLEAR); COLOR YELLOW (YELLOW)
[2017-12-29 21:19] LABS: BILIRUBIN NEGATIVE (NEGATIVE); GLUCOSE NEGATIVE (NEGATIVE); KETONE NEGATIVE (NEGATIVE); NITRITE NEGATIVE (NEGATIVE); PROTEIN NEGATIVE (NEGATIVE); RED CELLS - URINE RARE /hpf (0-5); SPECIFIC GRAVITY 1.015 (1.005-1.020); UROBILINOGEN NORMAL (NORMAL); WHITE CELLS - URINE 0-5 /hpf (0-5)
[2017-12-29 21:23] LABS: UDS - AMPHET NEGATIVE QUAL (NEGATIVE); UDS - BARB NEGATIVE QUAL (NEGATIVE); UDS - BENZO POSITIVE QUAL (NEGATIVE); UDS - COCAINE NEGATIVE QUAL (NEGATIVE); UDS - OPIATE NEGATIVE QUAL (NEGATIVE); UDS - PCP NEGATIVE QUAL (NEGATIVE); UDS - THC NEGATIVE QUAL (NEGATIVE)
[2017-12-29 22:49] VITALS: BP 116/45
== END 2017-12-29 22:49 ==
LOC: D.ER 19:10
PROVIDERS: Emergency Medicine
DX: R55 Syncope and collapse (principal); F03.90 Unspecified dementia, unspecified severity, without behavioral disturbance, psychotic disturbance, mood disturbance, and anxiety; R51 Headache

== ENCOUNTER 2018-01-20 10:32 | Emergency (ER) | payer MEDICARE ==
[~2018-01-20] VITALS: Ht 160 cm; Wt 63.6 kg
[2018-01-20 10:36] VITALS: Ht 160 cm; Wt 63.6 kg
[2018-01-20 11:04] LABS: BASOPHILS 1.4 % (0-2); HEMATOCRIT 40.2 % (36.0-48.0); HEMOGLOBIN 13.2 g/dL (12-16); IMMATURE GRANULOCYTES 0.3 % (0-5); LYMPHOCYTES 17.5 % (15-50); MCH 30.1 pg (26.0-34.0); MCHC 32.8 g/dL (31.0-37.0); MCV 91.6 fL (80.0-100.0); MEAN PLATELET VOLUME 10.5 fL (7.4-10.4); MONOCYTES 9.7 % (2-11); NEUTROPHILS 68.1 % (40-80); PLATELET COUNT 204 10x3/uL (130-400); RBC 4.39 10x6/uL (4.00-5.40); RDW 14.6 % (11.5-14.5); WBC 6.4 10x3/uL (4.8-10.8)
[2018-01-20 11:14] LABS: APPEARANCE CLEAR (CLEAR); BILIRUBIN NEGATIVE (NEGATIVE); COLOR STRAW (YELLOW); GLUCOSE NEGATIVE (NEGATIVE); KETONE NEGATIVE (NEGATIVE); NITRITE NEGATIVE (NEGATIVE); PROTEIN NEGATIVE (NEGATIVE); UROBILINOGEN NORMAL (NORMAL)
[2018-01-20 11:24] LABS: UDS - AMPHET NEGATIVE QUAL (NEGATIVE); UDS - BARB NEGATIVE QUAL (NEGATIVE); UDS - BENZO POSITIVE QUAL (NEGATIVE); UDS - COCAINE NEGATIVE QUAL (NEGATIVE); UDS - OPIATE NEGATIVE QUAL (NEGATIVE); UDS - PCP NEGATIVE QUAL (NEGATIVE); UDS - THC NEGATIVE QUAL (NEGATIVE)
[2018-01-20 11:33] LABS: ANION GAP 8.5 mmol/L (8-16); BILIRUBIN - DIRECT 0.15 mg/dL (0.00-0.30); BILIRUBIN - INDIRECT 0.54 mg/dL (0.00-1.00); BILIRUBIN - TOTAL 0.69 mg/dL (0.2-1.3); CALCIUM 9.3 mg/dL (8.5-10.1); CARBON DIOXIDE 31.3 mmol/L (21.0-32.0); CREATININE - SERUM 0.9 mg/dL (0.6-1.3); POTASSIUM - SERUM 3.8 mmol/L (3.5-5.1); PROTEIN - SERUM 7.8 g/dL (6.4-8.2); THYROID STIMULATING HORMONE 2.55 uIU/mL (0.36-3.74)
[2018-01-20 13:59] VITALS: BP 112/68
== END 2018-01-20 14:24 | disposition other institution (70) ==
LOC: D.ER 10:32
PROVIDERS: Emergency Medicine
DX: R45.851 Suicidal ideations (principal); F03.90 Unspecified dementia, unspecified severity, without behavioral disturbance, psychotic disturbance, mood disturbance, and anxiety; F32.9 Major depressive disorder, single episode, unspecified

== ENCOUNTER 2018-01-20 14:06 | Inpatient (IN) | payer MEDICARE ==
[~2018-01-20] VITALS: Ht 160 cm; Wt 62.6 kg
--- NOTE | ~2018-01-20 | PN ---
PATIENT:UJDSON COTTON MEDICAL RECORD: [id number] LOCATION:DANA SnogAinsley ADMISSION DATE: 01/20/18 PROGRESS NOTE DATE OF SERVICE: 02/06/2018 SUBJECTIVE: The patient's case was discussed with staff. She has no new complaint. OBJECTIVE: The patient denies intent to harm herself or others. She does tolerate her medicines well. ASSESSMENT: No change in diagnoses. PLAN: Current medicines have been reviewed and will be maintained. Long-term prognosis is guarded. TRANSINT:[id number] Voice Confirmation ID: [id number] DOCUMENT ID: [id number] BRUNILDA JASON MD at 1018 CC: [id number] DICTATION DATE: 02/06/18 1243 SCENARIO WRITER: 02/06/18 1441 ADM IN [place] [id number] [place] [address]
--- NOTE | ~2018-01-20 | PN ---
PATIENT:JUDSON COTTON MEDICAL RECORD: [id number] LOCATION:DANA SongAinsley ADMISSION DATE: 01/20/18 PROGRESS NOTE DATE OF SERVICE: 01/27/2018 SUBJECTIVE: The patient's case was discussed with staff. She has no new complaint. OBJECTIVE: The patient is in good behavioral control with limited insight about her condition. She tolerates her medicines well. ASSESSMENT: No change in diagnoses. PLAN: Current medicines have been reviewed and will be maintained. Long-term prognosis is guarded. TRANSINT:[id number] Voice Confirmation ID: [id number] DOCUMENT ID: [id number] BRUNILDA JASON MD at 1551 CC: [id number] DICTATION DATE: 01/27/18 1158 CONSUMER SCIENCE TEACHER: 01/27/18 1220 ADM IN [place] [id number] [place] [address]
--- NOTE | ~2018-01-20 | PN ---
PATIENT:JUDSON COTTON MEDICAL RECORD: [id number] LOCATION:DANA SongAinsley ADMISSION DATE: 01/20/18 PROGRESS NOTE DATE OF SERVICE: 02/02/2018 SUBJECTIVE: The patient's case was discussed with staff. She has no new complaint. OBJECTIVE: The patient is in good behavioral control with limited insight about her condition. She has been engaged in some exit seeking behavior, but can reasonably be redirected. ASSESSMENT: No change in diagnoses. PLAN: Supportive and educational interventions were made. Long-term prognosis is guarded. TRANSINT:[id number] Voice Confirmation ID: [id number] DOCUMENT ID: [id number] BRUNILDA JASON MD at 1052 CC: [id number] DICTATION DATE: 02/02/18 1214 CONTACT CENTER PROFESSIONAL: 02/02/18 1511 ADM IN [id number] [place] [address]
--- NOTE | ~2018-01-20 | PN ---
PATIENT:JUDSON COTTON MEDICAL RECORD: [id number] LOCATION:DANA SongAinsley ADMISSION DATE: 01/20/18 PROGRESS NOTE DATE OF SERVICE: 01/25/2018 SUBJECTIVE: The patient's case was discussed with staff. She has no new complaint. OBJECTIVE: The patient is in good behavioral control with limited insight about her condition. She tolerates her medicines well. ASSESSMENT: No change in diagnoses. PLAN: Current medicines and therapies have been reviewed and will be maintained. Long-term prognosis is guarded. TRANSINT:[id number] Voice Confirmation ID: [id number] DOCUMENT ID: [id number] BRUNILDA JASON MD at 1309 CC: [id number] DICTATION DATE: 01/25/18 1334 BLEACH TESTER: 01/25/18 1544 ADM IN [id number] [place] [address]
--- NOTE | ~2018-01-20 | PN ---
PATIENT:JUDSON COTTON MEDICAL RECORD: [id number] LOCATION:DANA SongAinsley ADMISSION DATE: 01/20/18 PROGRESS NOTE DATE OF SERVICE: 02/11/2018 SUBJECTIVE: The patient's case was discussed with staff. She has no new complaint. OBJECTIVE: The patient denies intent to harm herself or others, but she was making a number of delusional statements about another man being her and actually was unzipping her trousers and heading for him when she was stopped by staff members. I am not sure how to explain this sexually inappropriate behavior. I am going to hold off on her discharge and will discontinue her Trilafon and start her on a low dose of Geodon to assist with her thought disorganization. TRANSINT:[id number] Voice Confirmation ID: [id number] DOCUMENT ID: [id number] BRUNILDA JASON MD at 1443 CC: [id number] DICTATION DATE: 02/11/18 1613 ENGINEER EXHAUSTER: 02/11/18 1840 ADM IN [address] [id number] [place] [address]
--- NOTE | ~2018-01-20 | PN ---
PATIENT:JUDSON COTTON MEDICAL RECORD: [id number] LOCATION:DANA SongAinsley ADMISSION DATE: 01/20/18 PROGRESS NOTE DATE OF SERVICE: 02/01/2018 SUBJECTIVE: The patient's case was discussed with staff. She has no new complaint. OBJECTIVE: The patient denies intent to harm herself or others. She generally tolerates her medicines well. Eye contact is fair. ASSESSMENT: No change in diagnoses. PLAN: The patient is quite confused and impaired cognitively. She is intrusive and wandering, but not in any kind of a way that would represent a direct risk other than to say that she needs a secure environment and supervision. She was seen today by the [facility] social science manager and I have every expectation that she will be approved for mcc placement next week. ASSESSMENT: No change in diagnoses. PLAN: I have reviewed current medications and will maintain them. Her long-term prognosis is guarded. TRANSINT:[id number] Voice Confirmation ID: [id number] DOCUMENT ID: [id number] BRUNILDA JASON MD at 1204 CC: [id number] DICTATION DATE: 02/01/18 1847 TANK ASSEMBLER: 02/02/18 0041 ADM IN [facility] [address] [place] [address]
--- NOTE | ~2018-01-20 | PN ---
PATIENT:JUDSON COTTON MEDICAL RECORD: [id number] LOCATION:DANA SongAinsley ADMISSION DATE: 01/20/18 PROGRESS NOTE DATE OF SERVICE: 01/24/2018 SUBJECTIVE: The patient's case was discussed with staff. She has no new complaint. The patient is eating and sleeping much better. She now is denying that she would want to kill herself. I am not viewing that event as being evidence of a profound depression, but rather a woman who is demented and was frustrated and probably has some limited coping skills. TRANSINT:[id number] Voice Confirmation ID: [id number] DOCUMENT ID: [id number] BRUNILDA JASON MD at 1327 CC: [id number] DICTATION DATE: 01/24/18 1037 RETAIL RECEIVING CLERK: 01/24/18 1154 ADM IN [facility] [address] [place] [address]
--- NOTE | ~2018-01-20 | DS ---
PATIENT:JUDSON COTTON :43 MEDICAL RECORD: [id number] DISCHARGE SUMMARY ADMISSION DATE: 01/20/18 DISCHARGE DATE: 02/13/18 IDENTIFYING DATA: The patient is 72 years old and she was admitted to the hospital on a voluntary basis because of suicidal statements. She lives in the [facility] and was brought here because she was threatening to kill herself. She says that she is going to jump off a bridge or take all of her medications. She lives in a assisted that is locked so it is not very practical for her to jump off a bridge and her medicines are given to her by the staff and are not in her control, but despite this there is an intent to harm herself. She was verbally aggressive with the staff at the assisted. She was also making occasional delusional statements. She told me that she did want to kill herself but did not want to explain how she would do it. She was actually quite agitated and had received some p.r.n. Haldol and Ativan prior to me seeing her. HOSPITAL COURSE: The patient was admitted to the hospital and fully evaluated from both a medical, psychological, and social standpoint. She was displaying ongoing problems with suicidal thoughts and mood lability. She did have some improvement, but then her condition worsened. Medication adjustments were made and the patient improved sufficiently such that she could be discharged. She had several days of no suicidal thoughts when she was discharged. She still was making an occasional delusional statements and her dementia was felt to be advanced. She was subsequently returned to the assisted. 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 History of alcohol abuse, remote. AXIS II: Cluster B personality traits. AXIS III: Urinary tract infection and hyperlipidemia. AXIS IV: Moderate stressors. AXIS V: Global Assessment Of Functioning was 35. PLAN: At the time of discharge, the patient was in good behavioral control and had no active thoughts of harming herself or others. She was tolerating her medications well. She has a long-term prognosis that is guarded. Her situation is complicated. She probably has a combination of Alzheimer disease and alcohol related dementia. She clearly has a mood and anxiety disorder, which was probably why she drank through her adult life to excess. In addition to this, there are clear symptoms consistent with a personality disorder. The mix of all of this provides a very difficult patient to manage in the assisted. She is unable to process information in her environment and understand long-term effects of short-term behavior. She easily becomes frustrated and makes dramatic or histrionic statements. She also has mood lability that makes it difficult for those around her to interact with her because of her regular and frequent outbursts. On the whole, I think that she is manageable, but she may need to go to a behavioral assisted if this current placement fails to be a manageable location. TRANSINT:[id number] Voice Confirmation ID: [id number] DOCUMENT ID: [id number] DISCHARGE SUMMARY REPORT [id number] JUDSON COTTON, BRUNILDA HUTCHINS at 1217 CC: [id number] DICTATION DATE: 02/14/18931 COAT JOINER: 02/14/182225 DIS IN 02/13/18 [id number] [place] [address]
--- NOTE | ~2018-01-20 | PN ---
PATIENT:JUDSON COTTON MEDICAL RECORD: [id number] LOCATION:DANA Song112 ADMISSION DATE: 01/20/18 PROGRESS NOTE DATE OF SERVICE: 02/07/2018 SUBJECTIVE: The patient's case was discussed with staff. She has no new complaint. OBJECTIVE: The patient denies intent to harm herself or others. She generally tolerates her medicines well. Eye contact is fair. ASSESSMENT: No change in diagnoses. PLAN: The patient is better today. She did not mention anything about wanting to hurt herself, but when asked if she wanted to, she said sometimes and that is because she is lonely. Not sure how to address that. She lives in a senior living and she spends her days here in the hospital in the dayroom that is filled with people, staff, and constant activities. She could not explain it either. TRANSINT:[id number] Voice Confirmation ID: [id number] DOCUMENT ID: [id number] BRUNILDA JASON MD at 1239 CC: [id number] DICTATION DATE: 02/07/18 1417 WRECKER OPERATOR: 02/07/18 1750 ADM IN [address] [place] [address]
--- NOTE | ~2018-01-20 | PN ---
PATIENT:JUDSON COTTON MEDICAL RECORD: [id number] LOCATION:DANA Briscoe ADMISSION DATE: 01/20/18 PROGRESS NOTE DATE OF SERVICE: 02/10/2018 SUBJECTIVE: The patient's case was discussed with staff. She has no new complaint. OBJECTIVE: The patient is tearful and says that she has an appointment and needs to be released from the hospital immediately. She has very limited insight, and when told that it is Sunday and asked where she has an appointment, she just cries and cannot give me an answer. ASSESSMENT: No change in diagnoses. PLAN: The patient does not have suicidal thoughts today. She is severely impaired cognitively and this dementia is on top of a chronic mental illness. I understand she will be a difficult individual to manage in the snf, but I do not think that there is much more that can reasonably be done for her in this setting without running the risk of over sedating her which is an unacceptable tradeoff and improvement in symptoms at the risk of increasing her likelihood of falling or having an aspiration pneumonia. I am going to discharge the patient tomorrow. She has not made any further suicidal statements. I think it is reasonable for her to be discharged. TRANSINT:[id number] Voice Confirmation ID: [id number] DOCUMENT ID: [id number] BRUNILDA JASON MD at 1555 CC: [id number] DICTATION DATE: 02/10/18 0956 MEDICAL SECRETARY: 02/10/18 1051 ADM IN [facility] [address] [place] [address]
--- NOTE | ~2018-01-20 | PN ---
PATIENT:JUDSON COTTON MEDICAL RECORD: [id number] LOCATION:DANA Song112 ADMISSION DATE: 01/20/18 PROGRESS NOTE DATE OF SERVICE: 02/05/2018 SUBJECTIVE: The patient's case was discussed with staff. She has no new complaint. OBJECTIVE: The patient is significantly different today. She is quite agitated and says that I and the other staff here are going to be arrested soon for kidnapping. She says that she is not in a hospital, but this is a residential and that we are keeping everyone here prisoners. Trying to explain the situation was not effective. ASSESSMENT: No change in diagnoses. PLAN: I am going to start the patient on a low dose of an antipsychotic medication. I am going to use Trilafon at a dose of 2 mg at bedtime. Her long-term prognosis is guarded. At this point, we are waiting on the office of long-term care to give approval for half-way placement and I probably would have discharged her yesterday or the day before, had that come through, but seeing her today I will not discharge her today even if it is approved. I want her to have at least 1 dose of the antipsychotic medication. I suspect that this level of agitation is intermittent and probably is related to what brought her to the hospital initially. TRANSINT:[id number] Voice Confirmation ID: [id number] DOCUMENT ID: [id number] BRUNILDA JASON MD at 1142 CC: [id number] DICTATION DATE: 02/05/18 1205 EQUIPMENT WASHER: 02/05/18 1219 ADM IN [address] [place] [address]
--- NOTE | ~2018-01-20 | PN ---
PATIENT:JUDSON COTTON MEDICAL RECORD: [id number] LOCATION:DANA Briscoe ADMISSION DATE: 01/20/18 PROGRESS NOTE DATE OF SERVICE: 01/31/2018 SUBJECTIVE: The patient's case was discussed with staff. She has no new complaint. OBJECTIVE: The patient denies intent to harm herself or others. She generally tolerates her medicines well. ASSESSMENT: No change in diagnoses. PLAN: The patient will be transitioned out of the hospital soon. I do not think she is a direct danger to herself any longer. Placement is being sought. TRANSINT:[id number] Voice Confirmation ID: [id number] DOCUMENT ID: [id number] BRUNILDA JASON MD at 1730 CC: [id number] DICTATION DATE: 01/31/18 1427 RN CARE TRANSITION: 01/31/18 1512 ADM IN [facility] [address] [place] [address] [id number]
--- NOTE | ~2018-01-20 | PN ---
PATIENT:JUDSON COTTON MEDICAL RECORD: [id number] LOCATION:DANA Song112 ADMISSION DATE: 01/20/18 PROGRESS NOTE DATE OF SERVICE: 02/12/2018 SUBJECTIVE: The patient's case was discussed with staff. She has no new complaint. OBJECTIVE: The patient is in good behavioral control with limited insight about her condition. She does tolerate her medicines well. ASSESSMENT: No change in diagnoses. PLAN: Brief supportive and educational interventions were made. Long-term prognosis is guarded. TRANSINT:[id number] Voice Confirmation ID: [id number] DOCUMENT ID: [id number] BRUNILDA JASON MD at 1128 CC: [id number] DICTATION DATE: 02/12/18 1521 BELL PERSON: 02/12/18 1702 ADM IN [place] [address] [place] [address]
--- NOTE | ~2018-01-20 | PN ---
PATIENT:JUDSON COTTON MEDICAL RECORD: [id number] LOCATION:QIANADejuan MarinaKyungAinsley ADMISSION DATE: 01/20/18 PROGRESS NOTE DATE OF SERVICE: 02/04/2018 SUBJECTIVE: The patient's case was discussed with staff. She has no new complaint. OBJECTIVE: The patient is in good behavioral control with limited insight about her condition. She tolerates her medicines well. ASSESSMENT: No change in diagnoses. PLAN: Supportive and educational interventions were made. Long-term prognosis is guarded. The patient is severely impaired cognitively. Hopefully, she can be transitioned out of the hospital soon. The office of long-term care has not given approval for her longterm placement. TRANSINT:[id number] Voice Confirmation ID: [id number] DOCUMENT ID: [id number] BRUNILDA JASON MD at 1147 CC: [id number] DICTATION DATE: 02/04/18 1625 ASE MASTER MECHANIC: 02/05/18 0031 ADM IN [place] [id number] [place] [address]
--- NOTE | ~2018-01-20 | PN ---
PATIENT:JUDSON COTTON MEDICAL RECORD: [id number] LOCATION:DANA Song112 ADMISSION DATE: 01/20/18 PROGRESS NOTE DATE OF SERVICE: 02/08/2018 SUBJECTIVE: The patient's case was discussed with staff. She has no new complaint. OBJECTIVE: The patient is in good behavioral control today and denies that she would seek to harm herself or others. She is still not eating very well and in fact the amount she is eating is not consistent with long-term survival. I am going to check another set of basic labs to ensure she is not getting into metabolic difficulty and I am going to increase her Trilafon to 2 mg twice daily. I am hopeful that if she can go through the weekend without any thoughts of harming herself that she can reasonably be transitioned to a lower level of care on Sunday. TRANSINT:[id number] Voice Confirmation ID: [id number] DOCUMENT ID: [id number] BRUNILDA JASON MD at 1101 CC: [id number] DICTATION DATE: 02/08/18 1508 MANAGEMENT AND BUDGET ANALYST: 02/08/18 2309 ADM IN [place] [id number] [place] [address]
--- NOTE | ~2018-01-20 | PN ---
PATIENT:JUDSON COTTON MEDICAL RECORD: [id number] LOCATION:DANA Briscoe ADMISSION DATE: 01/20/18 PROGRESS NOTE DATE OF SERVICE: 01/26/2018 SUBJECTIVE: The patient's case was discussed with staff. She has no new complaint. OBJECTIVE: The patient denies intent to harm herself or others. She generally tolerates her medicines well. ASSESSMENT: No change in diagnoses. PLAN: Current medicines have been reviewed. She is taking Aricept to assist with her cognitive impairment and Megace to assist with appetite stimulation. TRANSINT:[id number] Voice Confirmation ID: [id number] DOCUMENT ID: [id number] BRUNILDA JASON MD at 1050 CC: [id number] DICTATION DATE: 01/26/18 1322 HYDROELECTRIC PLANT ELECTRICIAN: 01/26/18 1347 ADM IN [facility] [address] [place] [address]
--- NOTE | ~2018-01-20 | PN ---
PATIENT:JUDSON COTTON MEDICAL RECORD: [id number] LOCATION:MarinaGABBIEDejuan MarinaKyungAinsley ADMISSION DATE: 01/20/18 PROGRESS NOTE DATE OF SERVICE: 01/29/2018 SUBJECTIVE: The patient's case was discussed with staff. She has no new complaint. OBJECTIVE: The patient has limited insight about her condition. She does tolerate her medicines well. She is disorganized at times. ASSESSMENT: No change in diagnoses. PLAN: The patient will be given Aricept at a dose of 10 mg at bedtime. Aricept is being used to treat her underlying cognitive impairment. She will be monitored for clinical changes associated with its use. TRANSINT:[id number] Voice Confirmation ID: [id number] DOCUMENT ID: [id number] BRUNILDA JASON MD at 1058 CC: [id number] DICTATION DATE: 01/29/18 1429 URBAN PLANNING TEACHER: 01/29/18 1624 ADM IN [place] [id number] [place] [address]
--- NOTE | ~2018-01-20 | PN ---
PATIENT:JUDSON COTTON MEDICAL RECORD: [id number] LOCATION:QIANADejuan Luis Felipe ADMISSION DATE: 01/20/18 PROGRESS NOTE DATE OF SERVICE: 01/30/2018 SUBJECTIVE: The patient's case was discussed with staff. She has no new complaint. OBJECTIVE: The patient is denying any thoughts of harming herself or others. She generally tolerates her medicines well. She has limited insight about her situation. ASSESSMENT: No change in diagnoses. PLAN: Current medicines will be maintained. I anticipate she can be transitioned out of the hospital soon. Her long-term prognosis is guarded. TRANSINT:[id number] Voice Confirmation ID: [id number] DOCUMENT ID: [id number] BRUNILDA JASON MD at 0908 CC: [id number] DICTATION DATE: 01/30/181123 TRAVEL PTA: 01/30/18 1229 ADM IN [place] [id number] [place] [id number]
--- NOTE | ~2018-01-20 | PN ---
PATIENT:JUDSON COTTON MEDICAL RECORD: [id number] LOCATION:DANA SongAinsley ADMISSION DATE: 01/20/18 PROGRESS NOTE DATE OF SERVICE: 02/09/2018 SUBJECTIVE: The patient's case was discussed with staff. She has no new complaint. OBJECTIVE: The patient denies intent to harm herself or others. She is tolerating her medicines well. She did tell the nurse that she did not want to continue living, but then denied that she would seek to actively harm herself. ASSESSMENT: No change in diagnoses. PLAN: Supportive and educational interventions were made. Long-term prognosis is guarded. TRANSINT:[id number] Voice Confirmation ID: [id number] DOCUMENT ID: [id number] BRUNILDA JASON MD at 0924 CC: [id number] DICTATION DATE: 02/09/18 1110 INVASIVE CARDIOVASCULAR TECHNOLOGIST: 02/09/18 1203 ADM IN [place] [address] [place] [address]
--- NOTE | ~2018-01-20 | PN ---
PATIENT:JUDSON COTTON MEDICAL RECORD: [id number] LOCATION:DANA SongAinsley ADMISSION DATE: 01/20/18 PROGRESS NOTE DATE OF SERVICE: 01/23/2018 SUBJECTIVE: The patient's case was discussed with staff. She has no new complaint. OBJECTIVE: The patient is sleeping and eating reasonably well. She is still quite confused and now is denying that she would seek to harm herself. ASSESSMENT: No change in diagnoses. PLAN: Current medicines have been reviewed. Her long-term prognosis is guarded. She will have her Seroquel discontinued. TRANSINT:[id number] Voice Confirmation ID: [id number] DOCUMENT ID: [id number] BRUNILDA JASON MD at 1021 CC: [id number] DICTATION DATE: 01/23/18 1215 BANANA LOADER: 01/23/18 1237 ADM IN [place] [address] [place] [address]
--- NOTE | ~2018-01-20 | PN ---
PATIENT:JUDSON COTTON MEDICAL RECORD: [id number] LOCATION:DANA Briscoe ADMISSION DATE: 01/20/18 PROGRESS NOTE DATE OF SERVICE: 02/13/2018 SUBJECTIVE: The patient's case was discussed with staff. She has no new complaint. OBJECTIVE: The patient denies intent to harm herself or others. She generally tolerates her medicines well. She has no thoughts of harming herself today. She does make some delusional statements, but she is not out of control behaviorally. ASSESSMENT: No change in diagnoses. PLAN: The patient will be transitioned to the [facility] today. Followup will be with her primary care [facility] physician. Her long-term prognosis is guarded. TRANSINT:[id number] Voice Confirmation ID: [id number] DOCUMENT ID: [id number] BRUNILDA JASON MD at 0858 CC: [id number] DICTATION DATE: 02/13/18 1018 COMMISSARY OFFICER: 02/13/18 1131 DIS IN 02/13/18 [place] [address] [id number] [place] [address]
--- NOTE | ~2018-01-20 | PN ---
PATIENT:JUDSON COTTON MEDICAL RECORD: [id number] LOCATION:DANA SongAinsley ADMISSION DATE: 01/20/18 PROGRESS NOTE DATE OF SERVICE: 01/22/2018 SUBJECTIVE: The patient's case was discussed with staff. She has no new complaint. OBJECTIVE: The patient is not eating at all. She ate nothing yesterday. When asked about this, she claims that she did eat and when asked if she will eat today, she says that she naturally will. She did sleep well last night and she has not been aggressive. She also denies that she wants to hurt herself today. ASSESSMENT: No change in diagnoses. PLAN: Supportive and educational interventions were made. Long-term prognosis is guarded. TRANSINT:[id number] Voice Confirmation ID: [id number] DOCUMENT ID: [id number] BRUNILDA JASON MD at 1133 CC: [id number] DICTATION DATE: 01/22/18 1524 HEALTH SANITARIAN: 01/22/182004 ADM IN [facility] [address] [place] [address]
--- NOTE | ~2018-01-20 | PSY ---
PATIENT NAME:JUDSON COTTON MEDICAL RECORD: [id number] : 43 LOCATION:DANA Briscoe4 ADMISSION DATE: 01/20/18 ACCOUNT: [id number] PSYCHIATRIC EVALUATION DATE OF EVALUATION: 01/21/18 PSYCHIATRIC EVALUATION IDENTIFYING DATA: The patient is 72 years old and she is admitted to the hospital on a voluntary basis. CHIEF COMPLAINT: Suicidal statements. HISTORY OF PRESENT ILLNESS: The patient lives in the [facility] and was brought here because she was threatening to kill herself. She says that she is going to jump off a bridge or take all of her medicines. She lives in a mcc and it is locked, so it is not very practical for her to find a high object to jump off of and the patient's medicines are given to her by staff; but nevertheless, the intent is there and she may find other ways to hurt herself if this is not addressed. She has been verbally aggressive with staff. She is ambulatory, but at times makes delusional statements. She tells me that she does want to kill herself, but she does not tell me how she would do it and she really cannot give me an explanation as to why she wants to kill herself. She has been agitated today and required p.r.n. Haldol and Ativan prior to me seeing her; but is awake, arousable, and conversant, but clearly impaired; and when asked about things that make her uncomfortable, she will not give me answers. PAST MEDICAL HISTORY: Significant for anemia, but is otherwise relatively clean. PAST PSYCHIATRIC HISTORY: Significant for a diagnosis of dementia and I am suspecting there is a more extensive psychiatric history based on the presentation and symptoms along with her medication regimen, but at this point, I do not have information about it and she is not able to give me reliable history. FAMILY HISTORY: Unreliable, but the patient does deny any family history of psychiatric disease. ALLERGIES: No known drug allergies. CURRENT MEDICATIONS: Include Megace, Aricept, Seroquel, Zoloft, Klonopin, and multiple vitamins. SOCIAL HISTORY: The patient is . She does have adult children who are involved with her care. She currently lives in a mcc. I am not sure how long she has been there, but she obviously has an established diagnosis of dementia. She says she does not drink or use drugs, but I am not sure about her longitudinal history or her level of social and occupational functioning. There is apparently a history of alcohol abuse, but she again says she does not drink. MENTAL STATUS EXAMINATION: The patient is awake; alert; and oriented to person, place, and somewhat to time and situation. Her mood is angry. Her affect is constricted. Thought processes are disorganized and her memory, concentration, and abstraction abilities are moderately impaired. She denies any active intent to harm herself, but says she is thinking about doing so. She denies thoughts of harming others and psychotic symptoms. ASSETS: Stable living environment. LIABILITIES: Limited insight. DIAGNOSTIC IMPRESSION: AXIS I: 1. Senile dementia of the Alzheimer's type with behavioral disturbances. 2. History of alcohol abuse. 3. Major depression. AXIS II: Deferred. AXIS III: Urinary tract infection and hyperlipidemia. AXIS IV: Moderate stressors. AXIS V: Global assessment of functioning is 35. PLAN: At this time, the patient is admitted to the hospital secondary to suicidal statements and aggressive behaviors at the mcc. She will be comprehensively evaluated from both medical, psychological, and social standpoint. She will be treated with both mood stabilizing and antidepressant medications as deemed appropriate. Her long-term prognosis is guarded. TRANSINT:[id number] Voice Confirmation ID: [id number] DOCUMENT ID: [id number] BRUNILDA JASON MD at 1042 CC: [id number] DICTATION DATE: 01/21/18 1626 FENCE REPAIRMAN: 01/21/[address] [facility] IN [place] [address] [place] [address]
--- NOTE | ~2018-01-20 | PN ---
PATIENT:JUDSON COTTON MEDICAL RECORD: [id number] LOCATION:DANA SongAinsley ADMISSION DATE: 01/20/18 PROGRESS NOTE DATE OF SERVICE: 02/03/2018 SUBJECTIVE: The patient's case was discussed with staff. She has no new complaint. OBJECTIVE: The patient is in good behavioral control with limited insight about her condition. She does tolerate her medicines well. ASSESSMENT: No change in diagnoses. PLAN: Supportive and educational interventions were made. Long-term prognosis is guarded. TRANSINT:[id number] Voice Confirmation ID: [id number] DOCUMENT ID: [id number] BRUNILDA JASON MD at 1541 CC: [id number] DICTATION DATE: 02/03/18 1206 BARREL INSPECTOR TIGHT: 02/03/18 1701 ADM IN [place] [id number] [place] [address]
--- NOTE | ~2018-01-20 | PN ---
PATIENT:JUDSON COTTON MEDICAL RECORD: [id number] LOCATION:DANA SongAinsley ADMISSION DATE: 01/20/18 PROGRESS NOTE DATE OF SERVICE: 01/28/2018 SUBJECTIVE: The patient's case was discussed with staff. She has no new complaint. OBJECTIVE: The patient is disorganized with very limited insight about her condition. She denies that she would seek to harm herself. She has been angry and irritable with staff members, but not in a way that is rising to the level of requiring p.r.n. medications. ASSESSMENT: No change in diagnoses. PLAN: Current medicines and therapies will be maintained. Long-term prognosis is guarded. TRANSINT:[id number] Voice Confirmation ID: [id number] DOCUMENT ID: [id number] BRUNILDA JASON MD at 0932 CC: [id number] DICTATION DATE: 01/28/18 1606 CYBER SECURITY ENGINEER: 01/28/18 1718 ADM IN [place] [id number] [place] [address]
[2018-01-20 14:54] VITALS: BP 109/85
[2018-01-20 20:20] VITALS: BP 125/66
[2018-01-21 06:34] LABS: CHOL - HDL RATIO 10.1 ratio (2.3-4.1)
[2018-01-21 09:20] VITALS: BP 112/53
[2018-01-21 10:07] VITALS: BMI 24.5
[2018-01-21 14:57] VITALS: Ht 160 cm; Wt 62.6 kg
[2018-01-21 19:33] VITALS: BP 158/52
[2018-01-22 07:34] LABS: FOLATE (FOLIC ACID) - SERUM 16.5 ng/mL (>3.0); RAPID PLASMA REAGIN Non Reactive (Non Reactive); VITAMIN D 25 HYDROXY 27.8 ng/mL (30.0-100.0)
[2018-01-22 09:36] VITALS: BP 134/59
[2018-01-22 20:00] VITALS: BP 112/69
[2018-01-23 10:03] VITALS: BP 99/53
[2018-01-23 19:41] VITALS: BP 135/75
[2018-01-24 08:51] VITALS: BP 111/59
[2018-01-24 19:14] VITALS: BP 137/72
[2018-01-25 08:04] VITALS: BP 108/60
[2018-01-25 20:04] VITALS: BP 110/56
[2018-01-26 10:18] VITALS: BP 116/70
[2018-01-26 21:22] VITALS: BP 105/64
[2018-01-27 08:52] VITALS: BP 102/50
[2018-01-27 20:00] VITALS: BP 118/62
[2018-01-28 08:00] VITALS: BP 103/62
[2018-01-28 19:53] VITALS: BP 103/56
[2018-01-29 08:00] VITALS: BP 105/55
[2018-01-29 19:53] VITALS: BP 99/66
[2018-01-30 07:30] VITALS: BP 93/59
[2018-01-30 19:47] VITALS: BP 129/65
[2018-01-31 09:50] VITALS: BP 105/45
[2018-01-31 20:06] VITALS: BP 110/56
[2018-02-01 09:03] VITALS: BP 148/90
[2018-02-01 19:40] VITALS: BP 94/55
[2018-02-02 09:23] VITALS: BP 119/61
[2018-02-03 07:00] VITALS: BP 112/76
[2018-02-03 20:31] VITALS: BP 108/55
[2018-02-04 07:00] VITALS: BP 97/60
[2018-02-04 20:20] VITALS: BP 130/74
[2018-02-05 07:00] VITALS: BP 130/67
[2018-02-05 20:00] VITALS: BP 120/68
[2018-02-06 09:33] VITALS: BP 95/57
[2018-02-06] MEDS ORDERED: LIPITOR10 MG PO (11:44)
[2018-02-06] MEDS ORDERED: LINZESS145 MCG PO (11:44)
[2018-02-06] MEDS ORDERED: PERPHENAZINE2 MG PO (11:44)
[2018-02-06] MEDS ORDERED: ASPERCREME 5 OZ5 OZ TP (11:44)
[2018-02-06] MEDS ORDERED: VITAMIN D31000 UNI2 PO (11:45)
[2018-02-07 09:23] VITALS: BP 112/64
[2018-02-07 10:42] LABS: EOSINOPHILS 3.4 % (0-7); HEMATOCRIT 40.9 % (36.0-48.0); HEMOGLOBIN 13.8 g/dL (12-16); IMMATURE GRANULOCYTES 0.5 % (0-5); LYMPHOCYTES 17.2 % (15-50); MCH 30.2 pg (26.0-34.0); MCHC 33.7 g/dL (31.0-37.0); MCV 89.5 fL (80.0-100.0); MEAN PLATELET VOLUME 10.7 fL (7.4-10.4); MONOCYTES 9.1 % (2-11); NEUTROPHILS 68.8 % (40-80); PLATELET COUNT 240 10x3/uL (130-400); RBC 4.57 10x6/uL (4.00-5.40); RDW 15.8 % (11.5-14.5); WBC 7.6 10x3/uL (4.8-10.8)
[2018-02-07 10:58] LABS: ALBUMIN 4.2 g/dL (3.4-5.0); ANION GAP 15.7 mmol/L (8-16); BILIRUBIN - TOTAL 0.7 mg/dL (0.2-1.3); CALCIUM 9.3 mg/dL (8.5-10.1); CARBON DIOXIDE 20.9 mmol/L (21.0-32.0); CREATININE - SERUM 0.8 mg/dL (0.6-1.3); POTASSIUM - SERUM 3.6 mmol/L (3.5-5.1); PROTEIN - SERUM 7.8 g/dL (6.4-8.2)
[2018-02-07 19:25] VITALS: BP 102/44
[2018-02-08 09:58] VITALS: BP 92/59
[2018-02-08 17:02] LABS: BASOPHILS 0.7 % (0-2); EOSINOPHILS 3.4 % (0-7); HEMATOCRIT 38.6 % (36.0-48.0); HEMOGLOBIN 12.8 g/dL (12-16); IMMATURE GRANULOCYTES 0.3 % (0-5); LYMPHOCYTES 17.7 % (15-50); MCH 29.8 pg (26.0-34.0); MCHC 33.2 g/dL (31.0-37.0); MEAN PLATELET VOLUME 10.8 fL (7.4-10.4); MONOCYTES 9.3 % (2-11); NEUTROPHILS 68.6 % (40-80); PLATELET COUNT 239 10x3/uL (130-400); RBC 4.29 10x6/uL (4.00-5.40); RDW 15.8 % (11.5-14.5); WBC 7.1 10x3/uL (4.8-10.8)
[2018-02-08 17:20] LABS: ALBUMIN 3.9 g/dL (3.4-5.0); ANION GAP 16.7 mmol/L (8-16); BILIRUBIN - TOTAL 0.67 mg/dL (0.2-1.3); CALCIUM 9.1 mg/dL (8.5-10.1); CARBON DIOXIDE 21.2 mmol/L (21.0-32.0); CREATININE - SERUM 0.9 mg/dL (0.6-1.3); POTASSIUM - SERUM 3.9 mmol/L (3.5-5.1); PROTEIN - SERUM 7.3 g/dL (6.4-8.2)
[2018-02-08 20:24] VITALS: BP 109/51
[2018-02-09 08:00] VITALS: BP 119/77
[2018-02-09 19:39] VITALS: BP 118/50
[2018-02-10 07:00] VITALS: BP 109/66
[2018-02-10 20:41] VITALS: BP 114/65
[2018-02-11 08:00] VITALS: BP 107/62
[2018-02-11 19:54] VITALS: BP 136/76
[2018-02-12 08:00] VITALS: BP 104/49
[2018-02-12 20:04] VITALS: BP 125/77
[2018-02-13 08:00] VITALS: BP 102/70
== END 2018-02-13 10:00 | DRG 57 ==
LOC: D.PSYCH 14:06
PROVIDERS: Family Medicine; Psychiatry & Neurology Psychiatry
DX: G30.1 Alzheimer's disease with late onset (principal); F02.81 Dementia in other diseases classified elsewhere, unspecified severity, with behavioral disturbance; N39.0 Urinary tract infection, site not specified; R45.851 Suicidal ideations; F33.1 Major depressive disorder, recurrent, moderate; F10.97 Alcohol use, unspecified with alcohol-induced persisting dementia; E78.5 Hyperlipidemia, unspecified; R63.0 Anorexia; Z68.24 Body mass index [BMI] 24.0-24.9, adult; K70.0 Alcoholic fatty liver; D50.9 Iron deficiency anemia, unspecified

== ENCOUNTER 2018-08-03 14:17 | Emergency (ER) | payer MEDICARE, MEDICAID ==
[~2018-08-03 14:17] MED LIST changes: +ASPERCREME 5 OZ5 OZ TP; +LINZESS145 MCG PO; +LIPITOR10 MG PO; +PERPHENAZINE2 MG PO; +VITAMIN D31000 UNI2 PO
[2018-08-03 14:23] VITALS: BMI 25.2
[2018-08-03 18:23] VITALS: BP 113/49
== END 2018-08-03 20:15 | disposition home or self-care (01) ==
LOC: D.ER 14:17
DX: S52.91XA Unspecified fracture of right forearm, initial encounter for closed fracture (principal); W18.30XA Fall on same level, unspecified, initial encounter; Y92.129 Unspecified place in nursing home as the place of occurrence of the external cause; F03.90 Unspecified dementia, unspecified severity, without behavioral disturbance, psychotic disturbance, mood disturbance, and anxiety

== ENCOUNTER 2018-11-25 19:55 | Inpatient (IN) | payer MEDICARE, MEDICAID ==
[~2018-11-25] VITALS: Ht 162.6 cm; Wt 65.6 kg
[2018-11-25] MEDS ORDERED: LIPITOR10 MG PO (23:20)
[2018-11-25] MEDS ORDERED: VITAMIN D31000 UNI2 PO (23:22)
[2018-11-25] MEDS ORDERED: CITRACAL + D E1 EACH PO (23:22)
[2018-11-25] MEDS ORDERED: KLONOPIN1 MG PO (23:23)
[2018-11-25] MEDS ORDERED: DEPAKOTE SPRIN125 MG PO (23:26)
[2018-11-25] MEDS ORDERED: CHRONULAC30 ML PO (23:27)
[2018-11-25] MEDS ORDERED: LINZESS145 MCG PO (23:28)
[2018-11-25] MEDS ORDERED: REMERON15 MG PO (23:28)
[2018-11-25] MEDS ORDERED: MULTI-DAY VITAM1 TAB PO (23:29)
[2018-11-25] MEDS ORDERED: PERPHENAZINE2 MG PO (23:29)
[2018-11-25] MEDS ORDERED: ZOLOFT100 MG PO (23:29)
[2018-11-25] MEDS ORDERED: XIFAXAN550 MG PO (23:30)
[2018-11-26 00:06] VITALS: BP 109/67; BMI 23.2
[2018-11-26 06:38] LABS: BASOPHILS 1.1 % (0-2); EOSINOPHILS 7.7 % (0-7); HEMATOCRIT 33.1 % (36.0-48.0); HEMOGLOBIN 11.1 g/dL (12-16); IMMATURE GRANULOCYTES 0.2 % (0-5); LYMPHOCYTES 24.9 % (15-50); MCH 30.2 pg (26.0-34.0); MCHC 33.5 g/dL (31.0-37.0); MCV 89.9 fL (80.0-100.0); MEAN PLATELET VOLUME 10.6 fL (7.4-10.4); MONOCYTES 11.5 % (2-11); NEUTROPHILS 54.6 % (40-80); RBC 3.68 10x6/uL (4.00-5.40); RDW 14.3 % (11.5-14.5); WBC 4.7 10x3/uL (4.8-10.8)
[2018-11-26 06:45] LABS: PLATELET COUNT 132 10x3/uL (130-400)
--- NOTE | 2018-11-26 06:49 | NUR ---
RECIEVED PT FROM [facility] R/T AGGRESSION AND INCREASED CONFUSION. SHE IS RECIEVED VIA EMS. SHE IS AMBULATORY AND USES A WHEELCHAIR TO ASSIST WITH AMBULATION. SHE IS ALERT AND ORIENTED TO SELF ONLY. SHE IS A FULL CODE. SPOKE WITH HER SON/GUARDIAN HE GAVE CODE WORD: MARGA. SHE HAS ONE PURPLE LONG SLEEVE SHIRT AND BENITO SWEATPANTS. SHE DIDNT COME WITH ANY OTHER VALUABLES.
[2018-11-26 07:26] LABS: ANION GAP 9.8 mmol/L (8-16); BILIRUBIN - TOTAL 0.71 mg/dL (0.2-1.3); CALCIUM 8.3 mg/dL (8.5-10.1); CARBON DIOXIDE 28.8 mmol/L (21.0-32.0); CHOL - HDL RATIO 8.8 ratio (2.3-4.1); CREATININE - SERUM 0.9 mg/dL (0.6-1.3); LDL-HDL RATIO 5.8 ratio (1.5-3.5); POTASSIUM - SERUM 3.6 mmol/L (3.5-5.1); PROTEIN - SERUM 5.9 g/dL (6.4-8.2); THYROID STIMULATING HORMONE 1.88 uIU/mL (0.36-3.74); VALPROIC ACID (DEPAKOTE) 20.7 ug/mL (50.0-100.0)
[2018-11-26 08:00] VITALS: BP 109/55
--- NOTE | 2018-11-26 12:57 | NUR ---
PT IS AWAKE AND ALERT TO PERSON ONLY. CALM AND COOPERATIVE WITH ASSESSMENT. REDIRECT AND REORIENT NEEDED. PT CAN BE ATTENTION SEEKING AT TIMES. PT IS VERY DEMANDING WITH STAFF. REDIRECT AND REORIENT NEEDED. FALL PRECAUTIONS IN PLACE. WILL CPOC.
[2018-11-26 14:40] VITALS: Ht 162.6 cm; Wt 65.6 kg
[2018-11-26 20:10] VITALS: BP 94/48
--- NOTE | 2018-11-26 22:55 | NUR ---
RECEIVED IN DINING AREA. WALKING ABOUT. REFUSED TO GO TO BED. COMBATIVE WITH STAFF AT TIMES. REDIRECT AND REORIENT NEEDED. IN BEDROOM WITH NURSE AT THIS TIME. CONTINUE PLAN OF CARE
--- NOTE | 2018-11-26 23:00 | NUR ---
IN AND OUT CATH PERFORMED TO OBTAIN URINE FOR URINALYSIS AND CULTURE. ATTEMPTED TO OBTAIN BY USING [place] HAT AND PATIENT COULD NOT FOLLOW INSTRUCTIONS. OBTAINED URINE AND TAKEN TO LAB.
[2018-11-26 23:34] LABS: APPEARANCE CLEAR (CLEAR); BILIRUBIN NEGATIVE (NEGATIVE); COLOR DK YELLOW (YELLOW); GLUCOSE NEGATIVE (NEGATIVE); KETONE NEGATIVE (NEGATIVE); NITRITE NEGATIVE (NEGATIVE); PROTEIN NEGATIVE (NEGATIVE); UROBILINOGEN NORMAL (NORMAL)
[2018-11-26 23:35] LABS: BACTERIA FEW /hpf (NEGATIVE); EPITHELIAL CELLS 0-5 /hpf (0-5); RED CELLS - URINE 0-5 /hpf (0-5)
[2018-11-27 09:11] VITALS: BP 118/51
--- NOTE | 2018-11-27 14:05 | NUR ---
PATIENT IS AWAKE AND ALERT, WITH CONFUSION NOTED. CALM AND COOPERATIVE WITH CARE AND ASSESSMENT. MEDICATION COMPLIANT. REDIRECT AND REORIENT NEEDED. PATIENT CAN BE ARGUMENTATIVE AND DEMANDING AT TIMES. FALL PRECAUTIONS IN PLACE. CONTINUE POC.
[2018-11-27 20:55] VITALS: BP 97/61
--- NOTE | 2018-11-28 02:02 | NUR ---
REC'D SITTING IN THE DAYROOM. POOR INTERACTION WITH OTHERS. CONFUSED AND DISORIENTED. UNCOOPERATIVE WITH STAFF WHEN ASKED TO DO SOMETHING SHE DOES NOT WANT TO DO FOR EXAMPLE AFTER TAKING MEDICATION PATIENTS ARE BEING BROUGHT TO THEIR ROOMS. PATIENT DID NOT WANT TO LEAVE THE DAYROOM AND REFUSED TO WALK. PATIENT WOULD NOT STAND WHEN STAFF WAS TRYING TO HELP HER AMBULATE AND HAD TO BE PUT IN A WHEELCHAIR TO BE BROUGHT TO HER ROOM. PATIENT WILL DIG HER FINGERNAILS INTO STAFF'S ARM AND SLAP AT THEM. ADMINSITER MEDS PER ORDERS Q SHIFT AND MONITOR COMPLIANCE. REDIRECT FOR AGGRESSIVE BEHAVIOR. MED COMPLIANT. POOR REDIRECTION. PT WILL EITHER CURSE AT YOU OR ACTED OUT AGGRESSIVELY. CONTINUE POC AND PROVIDE SAFE ENVIRONMENT.
[2018-11-28 09:26] VITALS: BP 130/67
--- NOTE | 2018-11-28 10:13 | NUR ---
B) The patient is sitting in the day room, she is interacting appropriately. She has not made any remarks about other people this am. She has not shown any aggression this am. She ambulates independently and she is interacting with staff and peers. I) Provide prescribed meds. R) The patient is compliant with meds and unit milieu. P) Continue POC.
--- NOTE | 2018-11-28 15:05 | NUR ---
NUTRITION F/U PT TOLERATING REG DIET WITH ~75% INTAKE RECENT MEALS. WILL CONTINUE TO PROVIDE DIET, MONITOR PO INTAKE, WT. RD FOLLOWING
--- NOTE | 2018-11-28 15:35 | NUR ---
The patient is confused this afternoon and she is delusional. She approached me and stated "You're in on it too." Asked her "what are you referring." She said "The war." Still did not comprehend, but allowed her to talk and she is staring out and talking, but it is nonsensical.
[2018-11-28 20:01] VITALS: BP 101/64
--- NOTE | 2018-11-28 23:14 | NUR ---
PATIENT IS VERY CONFUSED, SHE THINKS THAT SHE HAS NEVER BEEN HERE BEFORE, SHE HAS BEEN HERE MANY TIMES, SHE IS ONLY ORIENTED TO SELF, COMPLIANT WITH MEDS, SHE IS VERY LABILE AND CAN MAKE NEEDS KNOWN, WILL FOLLOW POC.
--- NOTE | 2018-11-29 08:04 | NUR ---
B) The patient is pleasant and calm this am. He has poor insight into her situation. She is oriented to her name only. She has some delusions and it is difficult to understand some of her conversation. She ambulates independently. I) Provide prescribed meds. R) The patient is compliant with meds. P) Continue POC.
[2018-11-29 08:30] VITALS: BP 142/61
[2018-11-29 20:00] VITALS: BP 95/53
--- NOTE | 2018-11-30 00:50 | NUR ---
B.) PT IS ALERT AND ORIENTED TO SELF ONLY. SHE HAS POOR INSIGHT INTO HER SITUATION. SHE IS PLEASANT WITH STAFF AND PEERS. I.) REDIRECT OFTEN. PROVIDED PM MEDICATIONS. R.) EASY TO REDIRECT BUT EASILY GETS CONFUSED. COMPLIANT WITH MEDICATIONS. P.) CONTINUE PLAN OF CARE
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
[2018-11-30 21:05] VITALS: BP 108/88
--- NOTE | 2018-11-30 22:58 | NUR ---
B.) PT IS ALERT AND ORIENTED TO SELF AND SITUATION ONLY. SHE IS INTRUSIVE WITH PEERS CARE. I.) REDIRECT OFTEN. PROVIDED PM MEDICATIONS. R.) PT IS RESISTANT TO REDIRECTION. COMPLIANT WITH ALL MEDICATIONS. P.) CONTINUE PLAN OF CARE
[2018-12-01 08:00] VITALS: BP 126/95
--- NOTE | 2018-12-01 15:52 | NUR ---
B) PATIENT IS ALERT AND ORIENTED TO SELF AND SITUATION ONLY. SHE IS VERY CONFUSED THIS MORNING, REFUSED BREAKFAST AND LUNCH. 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 AMBULATES INDEPENDENTLY. I) ADMINISTER PRESCRIBED MEDICATIONS. REDIRECT AND REORIENT NEEDED. R) COMPLIANT WITH TAKING MEDICATIONS, BUT RESISTANT TO REDIRECTION. C) CONTINUE PLAN OF CARE.
--- NOTE | 2018-12-01 20:31 | NUR ---
RECEIVED IN DAYROOM. SITTING IN A CHAIR WITH PEERS AT HER SIDE. CALM AND COOPERATIVE WITH CARE AND ASSESSMENT. NO SIGNS OF AGGRESSION. REDIRECT AND REORIENT NEEDED. CONTINUES TO SIT CALMLY AT THIS TIME. CONTINUE PLAN OF CARE
[2018-12-01 22:56] VITALS: BP 130/74
[2018-12-02 08:00] VITALS: BP 106/64
[2018-12-02] MEDS ORDERED: Zoloft PO (12:17)
[2018-12-02] MEDS ORDERED: PERPHENAZINE2 MG PO (12:18)
[2018-12-02] MEDS ORDERED: DEPAKOTE SPRIN125 MG PO (12:18)
[2018-12-02] MEDS ORDERED: Megace ES [CHEMO] PO (12:18)
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
--- NOTE | 2018-12-02 12:28 | PN ---
PATIENT:JUDSON COTTON MEDICAL RECORD: [id number] LOCATION:[facility] ADMISSION DATE: 11/25/18 PROGRESS NOTE DATE OF SERVICE: 11/27/2018 SUBJECTIVE: Ms. Cotton is a 73-year-old female, well known to this unit. She even a year ago looking at notes was much more oriented. She has had a long history of alcohol abuse. On interview, patient is alert and oriented barely to 1. Her behaviors have been much more subdued than what her preadmission behavior suggests. She is redirectable, not aggressive. On interview, she was confused. She did acknowledge my presence but barely got out a yes or no, more like grunting. She slept 7.25 hours, eating 75%, 0, and 50%. No recorded bowel movement so far. Her laboratory so far is really insignificant. Her albumin is low at 3. Her initial valproic acid was just 20.7 and a UA showed some leukocyte esterase, a few bacteria and understand the culture is being processed. OBJECTIVE: VITAL SIGNS: 98.1, 63, 18, 118/51, 98%. ASSESSMENT: Unchanged. PLAN: We will continue current medications. We will continue to monitor for aggressive or agitated behaviors. Case discussed with nursing, chart reviewed. The patient interviewed. TRANSINT:[id number] Voice Confirmation ID: [id number] DOCUMENT ID: [id number] DENIS [place] MD at 1228 CC: [id number] DICTATION DATE: 11/27/18 1058 MANAGER ROOFING: 11/27/181954 ADM IN [place] [address] [place] [id number]
--- NOTE | 2018-12-02 12:28 | PN ---
PATIENT:JUDSON COTTON MEDICAL RECORD: [id number] LOCATION:[facility]NA Song113 ADMISSION DATE: 11/25/18 PROGRESS NOTE DATE OF SERVICE: 11/29/2018 SUBJECTIVE: Ms. Carrillo is a 73-year-old female with a very rapidly progressing dementia. She was reported as being about alert and oriented times 3 this time last year. She is quite confused. She confabulates where she is, believing she is in a war. She believes everyone is actively trying to work against her, although her facial expression is bright and pleasant as she is saying that. Nursing reports she although not physically aggressive she is becoming more occasionally verbally aggressive and certainly more wandering and her confusion. She slept 8.75. Eating 85%, 0%, and 100%. No recorded last bowel movement. OBJECTIVE: VITAL SIGNS: 98.6, 98, 18, 142/61, and 98%. ASSESSMENT: Unchanged. PLAN: We will start to decrease Zoloft in an effort to decrease her polypharmacy as agitation and not necessarily anxiety seemed to be more the presenting symptoms. Case discussed with nursing, chart reviewed and patient interviewed. TRANSINT:[id number] Voice Confirmation ID: [id number] DOCUMENT ID: [id number] DENIS VARGH[place] MD at 1228 CC: [id number] DICTATION DATE: 11/29/18 1330 SUPERVISOR WEAVING: 11/29/18 2115 ADM IN [place] [address] [place] [address]
--- NOTE | 2018-12-02 13:00 | NUR ---
B) PATIENT IS ALERT AND ORIENTED TO SELF AND SITUATION ONLY. SHE HAS A VERY LABILE AFFECT,PLEASANT TO CONFUSED AND AGITATED. CALM WITH ASSESSMENT. AMBULATES INDEPENDENTLY. I) ADMINISTER PRESCRIBED MEDICATIONS, REDIRECT AND REORIENT OFTEN. R) COMPLIANT WITH MEDICATIONS. REDIRECTION RESISTANT, WANTS TO DO THINGS HER OWN WAY. P) WILL CONTINUE PLAN OF CARE.
[2018-12-02 20:22] VITALS: BP 144/70
--- NOTE | 2018-12-02 20:48 | NUR ---
RECEIVED IN DAYROOM. RESTING IN CHAIR WITH PEERS AT HER SIDE. SOCIALIZING AT TIMES. CALM AND COOPERATIVE WITH CARE AND ASSESSMENT. RESTINGIN BED WITH EYES CLOSED AT THIS TIME. CONTINUE PLAN OF CARE
[2018-12-03 08:00] VITALS: BP 93/76
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
--- NOTE | 2018-12-03 11:00 | NUR ---
B) PATIENT IS AWAKE AND ALERT TO SELF ONLY AND SITUATION. CALM AND COOPERATIVE WITH ASSESSMENT AND CARE. SHE GET UPSET EASILY AND RESISTS REDIRECTION. SHE WILL BE NICE ONE MINUTE AND CURSE AT YOU THE NEXT. I) ADMINISTER PRESCRIBED MEDICATIONS. REDIRECT AND REORIENT NEEDED. R) COMPLIANT WITH MEDICATIONS. P) CONTINUE KIMMY OF CARE.
--- NOTE | 2018-12-03 20:02 | NUR ---
RECEIVED IN BEDROOM. ASSIST TO GET READY FOR BED. CALM AND COOPERATIVE WITH CARE AND ASSESSMENT. NO SIGNS OF AGGRESSION. REDIRECT AND REORIENT NEEDED. RESTING IN BED WITH EYES CLOSED AT THIS TIME. CONTINUE PLAN OF CARE
[2018-12-04 04:19] VITALS: BP 100/50
[2018-12-04 08:25] VITALS: BP 99/50
--- NOTE | 2018-12-04 11:10 | NUR ---
B) PATIENT IS AWAKE AND ALERT TO SELF ONLY. CALM AND COOPERATIVE WITH CARE ASSESSMENT. AMBULATES INDEPENDENTLY. SHE IS PLEASANT MOOD THIS MORNING, BUT GETS IRRITABLE AND CONFUSED DURING THE DAY. I) ADMINISTER PRESCRIBED MEDICATIONS. REORIENT AND REDIRECT. R) COMPLIANT WITH MEDICATIONS. P) CONTINUE PLAN OF CARE.
[2018-12-04 20:19] VITALS: BP 110/49
--- NOTE | 2018-12-04 22:25 | NUR ---
B.) PT IS ALERT AND ORIENTED TO SELF ONLY. SHE STATES "I CANNOT GO TO BED THERE ARE TWO MEN IN THAT BED IT ITS." SHE IS ABLE TO AMBULATE ON HER OWN. SHE IS GUARDED AND EXIT SEEKING. I.) REDIRECT OFTEN. R.) PT IS DIFFICULT TO REDIRECT. P.) CONTINUE PLAN OF CARE
[2018-12-05 08:49] VITALS: BP 112/49
--- NOTE | 2018-12-05 10:50 | NUR ---
PATIENT SITTING IN GROUP AT THIS TIME. NO DISTRESS NOTED. PT IS CONFUSED AND ORIENTED TO SELF ONLY. EXIT SEEKS AND HAS POOR INSIGHT TO SITUTION. COMPLIANT WITH MEDS, VITALS AND ASSESSMENTS. PT AMBULATES AND CAN MAKE NEEDS KNOWN. PT IS PLESANT WITH STAFF AND PEERS. WILL CONT PLAN OF CARE.
--- NOTE | 2018-12-05 13:31 | NUR ---
Team Treatment Review: Diet: Regular Diet; Ensure w/ meals; Magic cup w/ dinner PO intake: 58% avg x 9 meals Wt: (No sig weight change) 11/25/2018: 131 lbs 12/01/2018: 131.2 lbs BM: x 1 on 11/30 Meds: Megace, Calcium/vit D, MVI Labs: No new labs since 11/26 Recommend laxative to prevent constipation. Encourage PO intake Continue regular diet, Ensure w/ meals, Magic Cup, and Megace Clinical Dietitian Following
--- NOTE | 2018-12-05 14:53 | PN ---
PATIENT:JUDSON COTTON MEDICAL RECORD: [id number] LOCATION:[facility] Joe ADMISSION DATE: 11/25/18 PROGRESS NOTE DATE OF SERVICE: 12/04/2018 SUBJECTIVE: The patient's case was discussed with staff. She has no new complaint. OBJECTIVE: The patient denies intent to harm herself or others. She does tolerate her medicines well. ASSESSMENT: No change in diagnoses. PLAN: Brief supportive and educational interventions were made. Medications were reviewed. I anticipate she can be transitioned out of the hospital soon if this level of improvement continues. There has been no aggression today. TRANSINT:[id number] Voice Confirmation ID: [id number] DOCUMENT ID: [id number] BRUNILDA JASON MD at 1453 CC: [id number] DICTATION DATE: 12/04/18 1631 CAST ASSOCIATE: 12/05/18 0028 ADM IN [facility] [address] [place] [address]
[2018-12-05 20:53] VITALS: BP 116/68
--- NOTE | 2018-12-06 04:01 | NUR ---
B) Patient is alert and oriented to person, grumpy and impatient at times, I) Administered scheduled medications as ordered, monitored for safety R) Mediation compliant, pleasant at times, P) Continue plan of care.
--- NOTE | 2018-12-06 10:00 | NUR ---
PATIENT SITTING IN GROUP AT THIS TIME. NO ACUTE DISTRESS NOTED. PT IS FRIENDLY EASY TO REDIRECT AT TIMES. ORIENTED TO SELF ONLY. COMPLIANT WITH MEDS, VITALS AND ASSESSMENTS. NO COMBATIVE BEHAVIOR NOTED AT THIS TIME. WILL CONT PLAN OF CARE.
--- NOTE | 2018-12-06 14:28 | PN ---
PATIENT:JUDSON COTTON MEDICAL RECORD: [id number] LOCATION:[facility]NA Joe ADMISSION DATE: 11/25/18 PROGRESS NOTE DATE OF SERVICE: 12/05/2018 SUBJECTIVE: The patient's case was discussed with staff. She has no new complaint. OBJECTIVE: The patient denies that she would seek to harm herself or others. She does tolerate her medicines well. ASSESSMENT: Dementia. PLAN: Current medicines have been reviewed and will be maintained. Her long-term prognosis is guarded. TRANSINT:[id number] Voice Confirmation ID: [id number] DOCUMENT ID: [id number] BRUNILDA JASON MD at 1428 CC: [id number] DICTATION DATE: 12/05/18 1506 FOREIGN EXCHANGE STUDENT COORDINATOR: 12/06/18 0022 ADM IN [facility] [address] [place] [address]
[2018-12-06 14:55] VITALS: BP 116/68
[2018-12-06 20:05] VITALS: BP 111/54
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
[2018-12-07 08:56] VITALS: BP 119/59
[2018-12-07 11:23] VITALS: BP 117/59
--- NOTE | 2018-12-07 12:17 | PN ---
PATIENT:JUDSON COTTON MEDICAL RECORD: [id number] LOCATION:[facility] ADMISSION DATE: 11/25/18 PROGRESS NOTE DATE OF SERVICE: 12/06/2018 SUBJECTIVE: The patient's case was discussed with staff. She has no new complaint. OBJECTIVE: The patient denies intent to harm herself or others. She is tolerating her medicines well. Eye contact is fair. ASSESSMENT: No change in diagnoses. PLAN: Brief supportive and educational interventions were made. Long-term prognosis is guarded. TRANSINT:[id number] Voice Confirmation ID: [id number] DOCUMENT ID: [id number] BRUNILDA JASON MD at 1217 CC: [id number] DICTATION DATE: 12/06/18 1454 DEPENDENCY PROGRAM DIRECTOR: 12/06/18 1608 ADM IN [place] [id number] [place] [address]
--- NOTE | 2018-12-07 14:53 | NUR ---
PT IS AWAKE AND ALERT TO PERSON. CALM AND COOPERATIVE WITH ASSESSMENT. MED COMPLAINT. NO BEHAVIORS NOTED AT THIS TIME. REDIRECT AND REORIENT NEEDED. FALL PRECAUTIONS IN PLACE. WILL CPOC.
[2018-12-07 20:59] VITALS: BP 100/44
--- NOTE | 2018-12-07 22:46 | NUR ---
PATIENT IS CONFUSED AND VERY LABILE. SHE WILL QUICKLY LOSE HER TEMPER. CAN MAKE NEEDS KNOWN. COMPLIANT WITH MEDS. WILL FOLLOW POC
[2018-12-08 08:41] VITALS: BP 113/68
--- NOTE | 2018-12-08 10:51 | PN ---
PATIENT:JUDSON COTTON MEDICAL RECORD: [id number] LOCATION:[facility] SongVerna ADMISSION DATE: 11/25/18 PROGRESS NOTE DATE OF SERVICE: 12/07/2018 SUBJECTIVE: The patient's case was discussed with staff. She has no new complaint. OBJECTIVE: The patient is in good behavioral control, but quite confused. She has been pleasant and cooperative. ASSESSMENT: No change in diagnoses. PLAN: Supportive and educational interventions were made. Long-term prognosis is guarded. TRANSINT:[id number] Voice Confirmation ID: [id number] DOCUMENT ID: [id number] BRUNILDA JASON MD at 1051 CC: [id number] DICTATION DATE: 12/07/18 1229 SUPERVISOR TICKET SALES: 12/07/18 1306 ADM IN [place] [id number] [place] [id number]
--- NOTE | 2018-12-08 12:21 | NUR ---
PT SITTING AND SOCIALIZING WITH PEERS. NURSE ATTEMPTED TO REDIRECT FROM FOOD CART. PT BECOME UPSET STATING "WHAT ARE YOU A NUT?" PT WAS ABLE TO BE REDIRECTED. PT COMPLIANT WITH MEDS, ASSESSMENT AND VITALS. NO COMBATIVE BEHAVIOR NOTED FROM PREVIOUS SHIFT. PT CONFUSED AND ORIENTED TO SELF ONLY. WILL CONT PLAN OF CARE.
--- NOTE | 2018-12-08 20:16 | NUR ---
RECEIVED IN DAYROOM. SITTING IN A CHAIR SOCIALIZING WITH PEERS. CALM AND COOPERATIVE WITH ACRE AND ASSESSMENT. NO SIGNS OF AGGRESSION. REDIRECT AND REORIENT NEEDED. RESTING IN BED WITH EYES CLOSED AT THIS TIME. CONTINUE PLAN OF CARE
[2018-12-08 21:33] VITALS: BP 97/62
[2018-12-09 08:00] VITALS: BP 117/69
--- NOTE | 2018-12-09 15:02 | PN ---
PATIENT:JUDSON COTTON MEDICAL RECORD: [id number] LOCATION:[facility] Joe ADMISSION DATE: 11/25/18 PROGRESS NOTE DATE OF SERVICE: 12/08/2018 SUBJECTIVE: The patient's case was discussed with staff. She has no new complaint. OBJECTIVE: The patient denies intent to harm herself or others. She is tolerating her medicines well. ASSESSMENT: Dementia. PLAN: I anticipate the patient can be transitioned back to the residential soon. Her behavior has improved and I do not think she currently represents a direct danger to herself or others. Unfortunately, the nature of her illness is one in which she is going to have intermittent behavioral disturbances, but at this point or at least for today she is calm and confused but cooperative. TRANSINT:[id number] Voice Confirmation ID: [id number] DOCUMENT ID: [id number] BRUNILDA JASON MD at 1502 CC: [id number] DICTATION DATE: 12/08/18 1149 MIG WELDER: 12/08/18 2239 ADM IN [place] [address] [place] [address]
--- NOTE | 2018-12-09 16:41 | NUR ---
PT IS AWAKE AND ALERT TO PERSON ONLY. CALM AND COOPERATIVE WITH ASSESSMENT. MED COMPLIANT. REDIRECT AND REORIENT NEEDED. NO BEHAVIORS NOTED AT THIS TIME. FALL PRECAUTIONS IN PLACE. WILL CPOC.
[2018-12-09 20:14] VITALS: BP 97/51
--- NOTE | 2018-12-09 22:36 | NUR ---
RECEIVED IN DAYROOM. RESTING ON COUCH WITH EYES OPEN. CALM AND COOPEATIVE WITH CARE AND ASSESSMENT. NO AGGRESSIVE BEHAVIORS. REDIRECT AND REORIENT NEEDED. RESTING IN BED WITH EYES CLOSED AT THIS TIME. CONTINUE PLAN OF CARE.
[2018-12-10 07:00] VITALS: BP 115/55
--- NOTE | 2018-12-10 11:01 | NUR ---
PT IS AWAKE AND ALERT TO PERSON ONLY. CALM AND COOPERATIVE WITH ASSESSMENT. MED COMPLIANT. REDIRECT AND REORIENT NEEDED. FALL PRECAUTIONS IN PLACE. WILL CPOC.
--- NOTE | 2018-12-10 14:46 | NUR ---
Nutrition Follow-up: Chart reviewed. Diet: Regular + Ensure with meals and Magic Cup with dinner PO intake: ~72% average x 9 meals No new labs. Meds noted: judice. Skin assessment reviewed. Last BM 12/04/18. Wt: 137# (12/08/18); Admit wt: 131# (11/26/18)- +6#. Continue current nutrition regimen. Consider bowel regimen to promote BM/prevent decrease in appetite. RD Following.
--- NOTE | 2018-12-10 14:49 | PN ---
PATIENT:JUDSON COTTON MEDICAL RECORD: [id number] LOCATION:DANA Song113 ADMISSION DATE: 11/25/18 PROGRESS NOTE DATE OF SERVICE: 12/09/2018 SUBJECTIVE: The patient's case was discussed with staff. She has no new complaint. OBJECTIVE: The patient is in good behavioral control. I anticipate she can be transitioned out of the hospital soon. ASSESSMENT: Dementia. PLAN: There are some issues regarding her placement back at the assisted. These are discharge planning issues related to interacting with the multiple bureaucracies that require us to deal with before discharging the patient. Once these obstacles are overcome, I am ready for her to be discharged. TRANSINT:[id number] Voice Confirmation ID: [id number] DOCUMENT ID: [id number] BRUNILDA JASON MD at 1449 CC: [id number] DICTATION DATE: 12/09/18 1613 MECHANICAL DESIGNER: 12/10/18 0016 ADM IN [facility] [address] [place] [address]
--- NOTE | 2018-12-10 20:50 | NUR ---
RECEIVED IN DAYROOM. WALKING ABOUT SOCIALIZING WITH PEERS. CALM AND COOPERATIVE WITH CARE AND ASSESMENT. NO SIGNS OF AGGRESSION. REDIERCT AND REORIENT NEEDED. RESTING IN BED WITH EYES CLOSED. CONTINUE PLAN OF CARE
[2018-12-10 20:59] VITALS: BP 109/47
[2018-12-11 08:00] VITALS: BP 119/63
--- NOTE | 2018-12-11 12:07 | PN ---
PATIENT:JUDSON COTTON MEDICAL RECORD: [id number] LOCATION:DANA Joe ADMISSION DATE: 11/25/18 PROGRESS NOTE DATE OF SERVICE: 12/10/2018 SUBJECTIVE: The patient's case was discussed with staff. She has no new complaint. OBJECTIVE: The patient is in good behavioral control. She has very seriously impaired cognition, but no acute dangerousness. Unfortunately, earlier, she did have some agitation, but did not require p.r.n. medication. ASSESSMENT: No change in diagnoses. PLAN: Current medicines and therapies have been reviewed. I am going to increase the dose of her Zoloft slightly. TRANSINT:[id number] Voice Confirmation ID: [id number] DOCUMENT ID: [id number] BRUNILDA JASON MD at 1207 CC: [id number] DICTATION DATE: 12/10/18 1514 MANAGER STONE: 12/11/18 0102 ADM IN [place] [id number] [place] [id number]
--- NOTE | 2018-12-11 18:35 | NUR ---
PATIENT QUIET AND COOPERATIVE THIS SHIFT, NO BEHAVIORAL ISSUES NOTED, MED COMPLIANT. COOPERATIVE WITH PLAN OF CARE. CONT POC DIRECTED.
[2018-12-11 22:48] VITALS: BP 130/70
--- NOTE | 2018-12-11 22:59 | NUR ---
RECEIVED IN PATIENT ROOM. GETTING READY FOR BED. CALM AND COOPERATIVE WITH CARE AND ASSESSMENT. NO AGGRESSIVE BEHAVIORS. REDIRECT AND REORIENT NEEDED. RESTING IN BED WITH EYES CLOSED AT THIS TIME. CONTINUE PLAN OF CARE.
[2018-12-12 08:05] VITALS: BP 117/72
--- NOTE | 2018-12-12 12:25 | NUR ---
NUTRITION F/U PT TO DC TODAY. WT HAS BEEN TRENDING UP SINCE ADMIT. EATING 100% MOST MEALS. BM 12/10/18. RD FOLLOWING
--- NOTE | 2018-12-12 12:59 | NUR ---
B) The patient is awake and alert, she has been pleasant. She is not showing any aggression today. She ambulates and she has been participating in groups and activities. I) Provide prescribed meds. R) The patient is compliant with meds. P) Continue POC.
--- NOTE | 2018-12-12 14:38 | PN ---
PATIENT:JUDSON COTTON MEDICAL RECORD: [id number] LOCATION:DANA Joe ADMISSION DATE: 11/25/18 PROGRESS NOTE DATE OF SERVICE: 12/11/2018 SUBJECTIVE: The patient's case was discussed with staff. She has no new complaint. OBJECTIVE: The patient is in good behavioral control with very limited insight about her condition. She tolerates her medicines well. ASSESSMENT: Dementia. PLAN: The patient will be transitioned out of the hospital tomorrow. Her long-term prognosis is guarded and follow up will be with her primary care longterm physician. TRANSINT:[id number] Voice Confirmation ID: [id number] DOCUMENT ID: [id number] BRUNILDA JASON MD at 1438 CC: [id number] DICTATION DATE: 12/11/18 1259 LABORER SHAFT SINKING: 12/11/[address] [facility] [address] [place] [id number]
--- NOTE | 2018-12-12 16:14 | NUR ---
SW CONTACTED PT'S SON, DANNY, AND LEFT VOICEMAIL OF DISCHARGE FOR TODAY TO [facility].
--- NOTE | 2018-12-12 17:50 | NUR ---
PATIENT DISCHARGED TO [facility] THIS SHIFT. NO DISTRESS NOTED. NO BEHAVIORS NOTED. PT STABLE AT TIME OF DISCHARGE. BELONGINGS GIVEN TO CAR COUPLER. PT AMBULATED TO [facility] AND WAS ASSIST TO SIT.
--- NOTE | 2018-12-13 15:03 | PN ---
PATIENT:JUDSON COTTON MEDICAL RECORD: [id number] LOCATION:[facility] ADMISSION DATE: 11/25/18 PROGRESS NOTE DATE OF SERVICE: 12/12/2018 SUBJECTIVE: The patient's case was discussed with staff. She has no new complaint. OBJECTIVE: The patient is in good behavioral control. She has poor insight about her situation. ASSESSMENT: No change in diagnoses. PLAN: Brief supportive and educational interventions were made. Long-term prognosis is guarded. I anticipate she can be transitioned out of the hospital today and follow up will be with her primary care senior care physician. She shows no evidence of acute or direct dangerousness to herself or others. She does, however, need a locked facility and 25-poul-b-day supervision because of her dementia. TRANSINT:[id number] Voice Confirmation ID: [id number] DOCUMENT ID: [id number] BRUNILDA JASON MD at 1503 CC: [id number] DICTATION DATE: 12/12/18 145 THREAD CUTTER TENDER: 12/12/18 2310 DIS IN 12/12/18 [facility] [address] [place] [address]
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
== END 2018-12-12 16:05 | DRG 57 ==
LOC: D.PSYCH 19:55
PROVIDERS: ADMIT Psychiatry & Neurology Psychiatry; ATTEND Psychiatry & Neurology Psychiatry
DX: G30.9 Alzheimer's disease, unspecified (principal); F02.81 Dementia in other diseases classified elsewhere, unspecified severity, with behavioral disturbance; F33.1 Major depressive disorder, recurrent, moderate; F10.97 Alcohol use, unspecified with alcohol-induced persisting dementia; D50.9 Iron deficiency anemia, unspecified; E78.5 Hyperlipidemia, unspecified; K59.00 Constipation, unspecified; E55.9 Vitamin D deficiency, unspecified; K70.0 Alcoholic fatty liver; R63.0 Anorexia; Z68.23 Body mass index [BMI] 23.0-23.9, adult

== ENCOUNTER 2019-03-17 14:24 | Inpatient (IN) | payer MEDICARE, MEDICAID ==
[~2019-03-17] VITALS: Ht 162.6 cm; Wt 68.0 kg
[~2019-03-17 14:24] MED LIST changes: +CITRACAL + D E1 EACH PO; +DEPAKOTE SPRIN125 MG PO; +MULTI-DAY VITAM1 TAB PO; +Megace ES [CHEMO] PO; +REMERON15 MG PO; +XIFAXAN550 MG PO; +Zoloft PO
[2019-03-17 15:01] LABS: APPEARANCE CLEAR (CLEAR); BILIRUBIN NEGATIVE (NEGATIVE); COLOR YELLOW (YELLOW); GLUCOSE NEGATIVE (NEGATIVE); KETONE NEGATIVE (NEGATIVE); NITRITE NEGATIVE (NEGATIVE); PROTEIN NEGATIVE (NEGATIVE); UROBILINOGEN NORMAL (NORMAL)
[2019-03-17 15:06] LABS: BASOPHILS 0.4 % (0-2); EOSINOPHILS 4.6 % (0-7); HEMATOCRIT 38.7 % (36.0-48.0); HEMOGLOBIN 12.8 g/dL (12-16); IMMATURE GRANULOCYTES 0.3 % (0-5); LYMPHOCYTES 20.5 % (15-50); MCH 30.8 pg (26.0-34.0); MCHC 33.1 g/dL (31.0-37.0); MCV 93.3 fL (80.0-100.0); MEAN PLATELET VOLUME 9.9 fL (7.4-10.4); MONOCYTES 10.3 % (2-11); NEUTROPHILS 63.9 % (40-80); RBC 4.15 10x6/uL (4.00-5.40); RDW 13.7 % (11.5-14.5)
[2019-03-17 15:17] LABS: INR 1.19 (0.85-1.17); PLATELET COUNT 193 10x3/uL (130-400); PROTIME 15.1 SECONDS (11.6-15.0)
[2019-03-17 15:18] LABS: APTT 28.5 SECONDS (22.8-39.4)
[2019-03-17 15:28] LABS: CALC OSMOLALITY 284 mosm/kg (275-300); CALCIUM 8.9 mg/dL (8.5-10.1); CARBON DIOXIDE 28.3 mmol/L (21.0-32.0); CHLORIDE - SERUM 105 mmol/L (98-107); CREATININE - SERUM 1.1 mg/dL (0.6-1.3); POTASSIUM - SERUM 3.8 mmol/L (3.5-5.1); SODIUM 141 mmol/L (136-145); UREA NITROGEN 15 mg/dL (7-18); eGFR NON AFRICAN AMERICAN 51 mL/min (90-120)
--- NOTE | 2019-03-17 15:30 | NUR ---
HAND OFF REPORT RECEIVED FROM OFF GOING RN, BRUNA CLAY
[2019-03-17 15:35] LABS: GLUCOSE 147 mg/dL (74-106)
[2019-03-17 15:36] LABS: UDS - AMPHET NEGATIVE QUAL (NEGATIVE); UDS - BARB NEGATIVE QUAL (NEGATIVE); UDS - BENZO POSITIVE QUAL (NEGATIVE); UDS - COCAINE NEGATIVE QUAL (NEGATIVE); UDS - OPIATE NEGATIVE QUAL (NEGATIVE); UDS - PCP NEGATIVE QUAL (NEGATIVE); UDS - THC NEGATIVE QUAL (NEGATIVE)
[2019-03-17 15:45] LABS: ALKALINE PHOSPHATASE 49 U/L (46-116); ALT (SGPT) 28 U/L (10-68); BILIRUBIN - TOTAL 0.69 mg/dL (0.2-1.3); CKMB 0.1 U/L (0.0-3.6); CREATINE KINASE 43 UL (21-215); MAGNESIUM - SERUM 1.7 mg/dL (1.8-2.4); PROTEIN - SERUM 6.3 g/dL (6.4-8.2); THYROID STIMULATING HORMONE 6.74 uIU/mL (0.36-3.74)
[2019-03-17 15:52] LABS: TROPONIN-I 0.016 ng/mL (0.000-0.060)
--- NOTE | 2019-03-17 18:00 | NUR ---
PT ARRIVED VIA STRETCHER TO ROOM. SHE LOOKED AT ME WHEN I CALLED HER NAME DIRECTLY. WAS ABLE TO GIVE ME HER FIRST NAME AND TOLD ME SHE WAS IN THE HOSPITAL. UNABLE TO ANSWER FURTHER QUESTIONS. CL IN REACH, SRX2,
[2019-03-17 18:28] VITALS: BP 123/52; BMI 25.8
[2019-03-17 20:00] VITALS: BP 156/60
[2019-03-18] VITALS: BP 133/65
--- NOTE | 2019-03-18 02:18 | NUR ---
I have reviewed this patient and I concur with the Shift Assessment completed by the Licensed Practical Nurse today this shift.
[2019-03-18 04:00] VITALS: BP 127/65
[2019-03-18 06:12] LABS: BASOPHILS 0.5 % (0-2); HEMATOCRIT 39.4 % (36.0-48.0); HEMOGLOBIN 12.8 g/dL (12-16); IMMATURE GRANULOCYTES 0.8 % (0-5); LYMPHOCYTES 27.7 % (15-50); MCHC 32.5 g/dL (31.0-37.0); MCV 92.5 fL (80.0-100.0); MONOCYTES 11.9 % (2-11); NEUTROPHILS 50.1 % (40-80); PLATELET COUNT 183 10x3/uL (130-400); RBC 4.26 10x6/uL (4.00-5.40); RDW 13.7 % (11.5-14.5)
[2019-03-18 06:49] LABS: ALBUMIN 3.1 g/dL (3.4-5.0); ALKALINE PHOSPHATASE 53 U/L (46-116); ALT (SGPT) 26 U/L (10-68); BILIRUBIN - TOTAL 0.52 mg/dL (0.2-1.3); CALCIUM 8.7 mg/dL (8.5-10.1); CARBON DIOXIDE 28.1 mmol/L (21.0-32.0); CHLORIDE - SERUM 107 mmol/L (98-107); PHOSPHOROUS 3.6 mg/dL (2.5-4.9); POTASSIUM - SERUM 3.8 mmol/L (3.5-5.1); PRO BNP 439 pg/mL (0-125); PROTEIN - SERUM 6.2 g/dL (6.4-8.2); SODIUM 142 mmol/L (136-145); T4 THYROXIN - FREE 1.01 ng/dL (0.76-1.46); VALPROIC ACID (DEPAKOTE) 40.1 ug/mL (50.0-100.0); eGFR NON AFRICAN AMERICAN 87 mL/min (90-120)
[2019-03-18 07:05] LABS: CALC OSMOLALITY 281 mosm/kg (275-300); CREATININE - SERUM 0.7 mg/dL (0.6-1.3); GLUCOSE 99 mg/dL (74-106); MAGNESIUM - SERUM 2.8 mg/dL (1.8-2.4); UREA NITROGEN 10 mg/dL (7-18)
--- NOTE | 2019-03-18 07:20 | NUR ---
RECIEVE REPORT. RESTING IN BED WITH EYES CLOSED. RESPIRATIONS NONLABORED. CONTINUE PLAN OF CARE AND SAFETY PRECAUTIONS.
[2019-03-18 07:58] VITALS: BP 140/54
[2019-03-18 11:37] VITALS: BP 128/52
[2019-03-18 14:33] VITALS: Ht 162.6 cm; Wt 68.0 kg
--- NOTE | 2019-03-18 15:30 | NUR ---
ALERT. BLANK STARE. BECOMES VERBAL DURING SWALLOW EVAL. FAMILY AT BEDSIDE. BED BATH AND LINEN CHANGE COMPLETE. CONTINUE PLAN OF CARE AND SAFETY PRECAUTIONS.
[2019-03-18 15:42] VITALS: BP 92/38
--- NOTE | 2019-03-18 19:04 | NUR ---
RECEIVED LYING IN BED WITH EYES OPEN. ALERT AND ORIENTED TO PERSON ONLY. ANSWERS QUESTIONS. VERY SOFT SPOKEN. REQUIRES TOTAL CARE. OFFERED FLUIDS AND REFUSED.02 @ 2 LITERS PER HF. IV TO LEFT AC WITH NS INFUSING AT 50CC/H. DSG TO LEFT FA CDI. DENIES ANY NEEDS.
[2019-03-18 20:27] VITALS: BP 116/87
--- NOTE | 2019-03-18 23:49 | NUR ---
IV CONTINOUSLY GOING OFF. IV IN LEFT AC. RESITED TO RIGHT WRIST. NS INFUSING AT 50CC/HR AT THIS TIME.
[2019-03-19 00:56] VITALS: BP 98/41
[2019-03-19 05:19] VITALS: BP 107/46
[2019-03-19 06:12] LABS: BASOPHILS 0.4 % (0-2); EOSINOPHILS 8.7 % (0-7); HEMOGLOBIN 11.5 g/dL (12-16); IMMATURE GRANULOCYTES 0.5 % (0-5); LYMPHOCYTES 23.5 % (15-50); MCH 29.7 pg (26.0-34.0); MCHC 31.9 g/dL (31.0-37.0); MEAN PLATELET VOLUME 10.4 fL (7.4-10.4); MONOCYTES 10.4 % (2-11); NEUTROPHILS 56.5 % (40-80); PLATELET COUNT 177 10x3/uL (130-400); RBC 3.87 10x6/uL (4.00-5.40); RDW 13.9 % (11.5-14.5); WBC 5.5 10x3/uL (4.8-10.8)
[2019-03-19 06:50] LABS: ANION GAP 10.3 mmol/L (8-16); CALCIUM 8.1 mg/dL (8.5-10.1); CARBON DIOXIDE 27.4 mmol/L (21.0-32.0); CREATININE - SERUM 0.8 mg/dL (0.6-1.3); MAGNESIUM - SERUM 1.9 mg/dL (1.8-2.4); PHOSPHOROUS 3.2 mg/dL (2.5-4.9); POTASSIUM - SERUM 3.7 mmol/L (3.5-5.1)
--- NOTE | 2019-03-19 07:10 | NUR ---
REPORT RECEIVED FROM ACID STRENGTH INSPECTOR AND PATIENT CARE ASSUMED. PATIENT LAYING IN BED ON BACK WITH EYES CLOSED AND BREATHING EVENLY. WILL CONTINUE WITH PLAN OF CARE. SR UP X 2 BED IN LOW POSIITION AND CALL LIGHT IN REACH.
[2019-03-19 09:10] LABS: THYROGLOBULIN ANTIBODY <1.0 IU/mL (0.0-0.9); THYROID PEROXIDASE ABS 13 IU/mL (0-34)
[2019-03-19 10:38] VITALS: BP 120/48
[2019-03-19 15:26] VITALS: BP 101/45
--- NOTE | 2019-03-19 15:33 | NUR ---
PATIENT LAYING IN BED ON BACK WITH EYES OPEN AND BREATHING EVENLY. PATIENT DOES NOT ANSWER ANY QUESTIONS AND CONTUNUES TO BY NON VERBAL. VSS. WILL CONTINUE TO MONITOR. SR UP X2 BED IN LOW POSITION AND CALL LIGHT IN REACH.
--- NOTE | 2019-03-19 16:13 | NUR ---
ORDERS RECEIVED FOR DC. VERBAL AND WRITTEN INSTRUCTIONS GIVEN TO PATIENT. UNABLE TO ASSESS PATIENT UNDERSTANDING DUE TO PATIENT MENTAL STATUS AND NON VERBAL. PATIENT UNABLE TO SIGN FORMS. CALLED REPORT TO KRISTEN BURNETTE AT [facility]. INFORMED VASILE THAT PATIENT WILL NEED 02 TANK BROUGHT FROM [facility] FOR TRANSPORT. WILL CONTINUE TO [facility] UNTIL DIRECTOR INTERNAL AUDIT. SIDE RAILS UP X 2 BED IN LOW POSITION AND CALL LIGHT IN REACH.
--- NOTE | 2019-03-19 16:17 | MORECARE ---
CASE MANAGEMENT DISCHARGE SUMMARY PATIENT: JUDSON COTTON UNIT: [id number] ADM DATE: 03/17/19 AGE: 73 : 44 SEX: F ROOM/BED: D.2104 AUTHOR: USHA PIPER PHYSICIAN: REFERRING PHYSICIAN: KAELYN CABAN MD DATE OF SERVICE: 03/19/19 Discharge Plan Patient Name: JUDSON COTTON Facility: [facility]:[place] : 1945 Planned Disposition: Nursing Facility ALENA Cert Anticipated Discharge Date: 03/19/19 Discharge Date: Expected LOS: 2 Initial Reviewer: [email or web address] Initial Review Date: 03/19/2019 Generated: 03/19/19 5:16 pm DCPIA - Discharge Planning Initial Assessment Updated by [email or web address]: Pavan Singer on 03/19/19 4:16 pm * Is the patient Alert and Oriented? No * How many steps to enter\exit or inside your home? NONE * PCP DR. WHEAT * [facility] * Preadmission Environment [facility] * Facility Name [facility] * ADLs Partial Dependent * Partial ADLs (Assistance needed) Ambulation Bathing Dressing Medication Management Toileting Transfers * Equipment Other * Other Equipment ALL MEDICAL EQUIPMENT PROVIDED BY FACILITY * List name and contact numbers for known caregivers / representatives who currently or will assist patient after discharge: DANNY COTTON, SON / GUARDIAN, * Verbal permission to speak to the caregivers and representatives has been obtained from the patient. N/A * Community resources currently utilized None * Please name any agencies selected above. NONE * Additional services required to return to the preadmission environment? No * Can the patient safely return to the preadmission environment? Yes * Has this patient been hospitalized within the prior 30 days at any hospital? No External Providers External Provider: [facility] Next Contact Date: 03/19/2019 Service Request Date: Service Type: Resolution: Reviewer: Comments: Patient Name: JUDSON COTTON Page 47500 at 1617 All edits/amendments must be made on the electronic document DICTATION DATE: 01/15/20 1616 SENIOR JAVASCRIPT ENGINEER: DM 03/19/191615 RPT#: [id number] DC DATE: STATUS: ADM IN [facility] [address] [place] [address] END OF REPORT
--- NOTE | 2019-03-19 16:24 | MORECARE ---
CASE MANAGEMENT DISCHARGE SUMMARY PATIENT: JUDSON COTTON UNIT: [id number] ADM DATE: 03/17/19 AGE: 73 : 44 SEX: F ROOM/BED: D.2100 AUTHOR: VERONIQUE,DOC PHYSICIAN: REFERRING PHYSICIAN: KAELYN CABAN MD DATE OF SERVICE: 03/19/19 Discharge Plan Patient Name: JUDSON COTTON Facility: [facility]:[place] : 1945 Planned Disposition: Nursing Facility ALENA Cert Anticipated Discharge Date: 03/19/19 Discharge Date: Expected LOS: 2 Initial Reviewer: [email or web address] Initial Review Date: 03/19/2019 Generated: 03/19/19 5:24 pm Comments DCP- Discharge Planning Updated by [id number]: Pavan Singer on 03/19/19 3:[address] Patient Name: JUDSON COTTON Admission Status: ER Accout number: [id number] Admission Date: 03-17-2019 : 1945 Admission Diagnosis: Attending: KAELYN CABAN Current LOS: 2 Anticipated DC Date: 03-19-2019 Planned Disposition: Nursing Facility ALENA Cert Primary Insurance: [facility] MEDICARE ADV PLANNED EXTERNAL PROVIDER: [place], LONG TERM CARE MEDICAID BED Discharge Planning Comments: CM RECEIVED DISCHARGE ORDER, ATTEMPTED TO SPEAK TO PT IN ROOM. PT STATES SHE LIVES AT HOME WITH SPOUSE INDEPENDENTLY WITH NO EQUIPMENT. CM REVIEWED CHART, FOUND THAT PT IS FROM [facility] AT [facility] WITH DEMENTIA. CM CALLED PT'S SON AND GUARDIAN, DANNY, , WHO INFORMED CM THAT PT LIVES AT [facility] AND WILL RETURN THERE TODAY. CHOICE COMPLETED. CM FAXED DISCHARGE INFORMATION TO [facility] AT [phone]; CM CALLED [facility] AT [phone] NOTIFIED [facility] OF DISCHARGE, THEY WILL COLD ROLL OPERATOR PT AND WILL ACCEPT BACK FOR [facility] TODAY.. [facility] TO ARRANGE VAN TRANSPORTATION. MONOGRAM MACHINE OPERATOR NURSE NOTIFIED. NURSE REPORT TO BE CALLED TO [facility] AT [phone]. [facility] TO ARRANGE VAN TRANSPORTATION. Precision Lens Generator: Pavan Singer DCPIA - Discharge Planning Initial Assessment Updated by [id number]: Pavan Singer on 03/19/19 4:16 pm * Is the patient Alert and Oriented? No * How many steps to enter\exit or inside your home? NONE * PCP DR. WHEAT * [facility] * Preadmission Environment [facility] * Facility Name [facility] * ADLs Partial Dependent * Partial ADLs (Assistance needed) Ambulation Bathing Dressing Medication Management Toileting Transfers * Equipment Other * Other Equipment ALL MEDICAL EQUIPMENT PROVIDED BY FACILITY * List name and contact numbers for known caregivers / representatives who currently or will assist patient after discharge: DANNY COTTON, SON / GUARDIAN, * Verbal permission to speak to the caregivers and representatives has been obtained from the patient. N/A * Community resources currently utilized None * Please name any agencies selected above. NONE * Additional services required to return to the preadmission environment? No * Can the patient safely return to the preadmission environment? Yes * Has this patient been hospitalized within the prior 30 days at any hospital? No Coverage Notice Reviewer: [id number] - Pavan Singer Notice Issued Date-Time: 03/19/2019 15:10 Notice Type: Patient Choice Letter Notice Delivered To: Family Member Relationship to Patient: Son Supervisor Mill Name: DANNY COTTON Delivery Method: HAND - Hand Delivered Analy Days: Prior Verbal Notification: Recipient Understood Notice: Yes Recipient Signature: Med Rec Note Co-signed by Attending: Coverage Notice Comment: [facility] MOLLY Robert DP export: 03/19/19 3:16 p Patient Name: JUDSON COTTON Page [id number] at 1624 All edits/amendments must be made on the electronic document DICTATION DATE: 03/19/191623 AGRICULTURAL AND FORESTRY SUPERVISOR: JENNIFER 03/19/19 1624 RPT#: [id number] DC DATE: STATUS: ADM IN [facility] [address] [place] [address] END OF REPORT
--- NOTE | 2019-03-19 17:41 | NUR ---
PATIENT IS STABLE AND VSS. [employer] DISHWASHING MACHINE OPERATOR HERE. PATIENT VIA WC TO FRONT DOOR ACCOMPANIED BY DISHWASHING MACHINE OPERATOR AND HOSPITAL PERSONNEL TO VAN DRIVEN BY [employer] EMPLOYEE.
== END 2019-03-19 17:43 | DRG 57 ==
LOC: D.ER 14:24 → D.M2 15:38 → D.ER 16:58 → D.M2 03-19 17:43
PROVIDERS: Family Medicine; ADMIT Internal Medicine Nephrology; ATTEND Internal Medicine Nephrology
DX: G30.9 Alzheimer's disease, unspecified (principal); F02.81 Dementia in other diseases classified elsewhere, unspecified severity, with behavioral disturbance; E03.9 Hypothyroidism, unspecified; E83.42 Hypomagnesemia; I10 Essential (primary) hypertension; E78.5 Hyperlipidemia, unspecified; G25.81 Restless legs syndrome; K58.9 Irritable bowel syndrome, unspecified; F41.8 Other specified anxiety disorders

== ENCOUNTER 2019-08-29 14:21 | Inpatient (IN) | payer MEDICARE, MEDICAID ==
[~2019-08-29] VITALS: Ht 162.6 cm; Wt 74.8 kg
[2019-08-29 15:31] LABS: BASOPHILS 0.2 % (0-2); EOSINOPHILS 3.3 % (0-7); HEMATOCRIT 43.1 % (36.0-48.0); HEMOGLOBIN 14.2 g/dL (12-16); IMMATURE GRANULOCYTES 1.3 % (0-5); LYMPHOCYTES 15.7 % (15-50); MCH 30.8 pg (26.0-34.0); MCHC 32.9 g/dL (31.0-37.0); MCV 93.5 fL (80.0-100.0); MONOCYTES 16.2 % (2-11); NEUTROPHILS 63.3 % (40-80); PLATELET COUNT 172 10x3/uL (130-400); RBC 4.61 10x6/uL (4.00-5.40); RDW 14.3 % (11.5-14.5)
[2019-08-29 15:41] LABS: CALC OSMOLALITY 282 mosm/kg (275-300); CALCIUM 9.1 mg/dL (8.5-10.1); CARBON DIOXIDE 27.3 mmol/L (21.0-32.0); CHLORIDE - SERUM 107 mmol/L (98-107); CREATININE - SERUM 1.3 mg/dL (0.6-1.3); GLUCOSE 101 mg/dL (74-106); POTASSIUM - SERUM 3.6 mmol/L (3.5-5.1); SODIUM 141 mmol/L (136-145); UREA NITROGEN 18 mg/dL (7-18); eGFR NON AFRICAN AMERICAN 42 mL/min (90-120)
[2019-08-29 15:58] LABS: ALBUMIN 3.7 g/dL (3.4-5.0); ALKALINE PHOSPHATASE 67 U/L (30-120); ALT (SGPT) 32 U/L (10-68); BILIRUBIN - TOTAL 0.37 mg/dL (0.2-1.3); CKMB 0.5 U/L (0.0-3.6); CREATINE KINASE 67 UL (21-215); MAGNESIUM - SERUM 2.4 mg/dL (1.8-2.4); PROTEIN - SERUM 7.6 g/dL (6.4-8.2); THYROID STIMULATING HORMONE 8.46 uIU/mL (0.36-3.74); TROPONIN-I < 0.017 ng/mL (0.000-0.060)
[2019-08-29 16:01] LABS: APTT 26.8 SECONDS (22.8-39.4); INR 1.12 (0.85-1.17); PROTIME 14.3 SECONDS (11.6-15.0)
[2019-08-29 16:32] LABS: UDS - AMPHET NEGATIVE QUAL (NEGATIVE); UDS - BARB NEGATIVE QUAL (NEGATIVE); UDS - BENZO POSITIVE QUAL (NEGATIVE); UDS - COCAINE NEGATIVE QUAL (NEGATIVE); UDS - OPIATE NEGATIVE QUAL (NEGATIVE); UDS - PCP NEGATIVE QUAL (NEGATIVE); UDS - THC NEGATIVE QUAL (NEGATIVE)
--- NOTE | 2019-08-29 16:37 | NUR ---
IN/OUT CATHETER PERFORMED TO OBTAIN URINE SAMPLE. URINE TO LAB.
[2019-08-29 16:38] LABS: BILIRUBIN NEGATIVE (NEGATIVE); GLUCOSE NEGATIVE (NEGATIVE); KETONE NEGATIVE (NEGATIVE); NITRITE POSITIVE (NEGATIVE); UROBILINOGEN NORMAL (NORMAL)
[2019-08-29 16:39] LABS: BACTERIA MANY /hpf (NEGATIVE); EPITHELIAL CELLS 0-5 /hpf (0-5); HYALINE CAST 0-5 /lpf (NONE SEEN); RED CELLS - URINE NONE SEEN /hpf (0-5); WHITE CELLS - URINE 0-5 /hpf (NEGATIVE)
--- NOTE | 2019-08-29 18:01 | NUR ---
1 GM ROCEPHIN COMPLETE AT THIS TIME. 08/29/19 1808. DV
[2019-08-29 21:50] VITALS: BP 146/66; BMI 28.4
--- NOTE | 2019-08-29 22:04 | NUR ---
RECEIVED REPORT FROM ER. RECIEVED ON STRETCHER. TWO STAFF TO TRANSFER TO BED. ALERT AND ORIENTED TO NAME ONLY. UNABLE TO TURN OR REPOSITION SELF. STATES SHE IS UNABLE TO STAND. INCONT OF B/B. ASSESSMENT COMPLETED.
[2019-08-29] MEDS ORDERED: DEPAKOTE ER250 MG PO (22:37)
[2019-08-29] MEDS ORDERED: KLONOPIN1 MG PO ×2 (22:38→22:47)
[2019-08-29] MEDS ORDERED: LINZESS145 MCG PO (22:39)
[2019-08-29] MEDS ORDERED: LIPITOR10 MG PO (22:40)
[2019-08-29] MEDS ORDERED: ZOLOFT100 MG PO (22:42)
[2019-08-29] MEDS ORDERED: TYLENOL ARTHRI650 MG PO (22:48)
[2019-08-29 23:32] VITALS: BP 146/66
--- NOTE | 2019-08-30 03:01 | NUR ---
CALLED [facility] TO HAVE COPY OF COVID TEST FAXED. SPOKE WITH NURSE AND SHE STATED " NOT SURE IF I HAVE ACCESS TO THAT. I MIGHT HAVE TO WAIT TIL MORNING". SAID SHE WILL LOOK AND SEE.
[2019-08-30 04:00] VITALS: BP 149/67
[2019-08-30 10:02] LABS: BASOPHILS 0.2 % (0-2); HEMATOCRIT 37.6 % (36.0-48.0); HEMOGLOBIN 12.3 g/dL (12-16); IMMATURE GRANULOCYTES 0.9 % (0-5); LYMPHOCYTES 24.3 % (15-50); MCH 30.5 pg (26.0-34.0); MCHC 32.7 g/dL (31.0-37.0); MCV 93.3 fL (80.0-100.0); MEAN PLATELET VOLUME 10.2 fL (7.4-10.4); MONOCYTES 14.9 % (2-11); NEUTROPHILS 54.7 % (40-80); PLATELET COUNT 147 10x3/uL (130-400); RBC 4.03 10x6/uL (4.00-5.40); RDW 14.2 % (11.5-14.5)
[2019-08-30 10:04] LABS: WBC 4.4 10x3/uL (4.8-10.8)
[2019-08-30 10:39] LABS: ALBUMIN 3.1 g/dL (3.4-5.0); ANION GAP 11.6 mmol/L (8-16); BILIRUBIN - TOTAL 0.52 mg/dL (0.2-1.3); CALCIUM 9.2 mg/dL (8.5-10.1); POTASSIUM - SERUM 3.6 mmol/L (3.5-5.1); PROTEIN - SERUM 6.5 g/dL (6.4-8.2)
[2019-08-30 10:41] LABS: CREATININE - SERUM 0.8 mg/dL (0.6-1.3)
[2019-08-30 11:05] VITALS: BP 127/52
[2019-08-30 13:33] VITALS: Ht 162.6 cm; Wt 74.8 kg
--- NOTE | 2019-08-30 19:30 | NUR ---
PT IN BED, AAO X 1, RESP EVEN AND UNLABORED. NO DISTRESS NOTED. CL IN REACH, SR UP X 2.
[2019-08-30 21:18] VITALS: BP 122/55
[2019-08-31 00:48] VITALS: BP 126/70
--- NOTE | 2019-08-31 04:27 | NUR ---
I have reviewed this patient and I concur with the Shift Assessment completed by the Licensed Practical Nurse today this shift.
[2019-08-31 05:08] VITALS: BP 135/63
--- NOTE | 2019-08-31 07:20 | NUR ---
RECIEVE REPORT. RESTING IN BED WITH EYES CLOSED. RESPIRATIONS REGULAR. CONTINUE PLAN OF CARE AND SAFETY PRECAUTIONS.
[2019-08-31 08:05] LABS: ALBUMIN 3.1 g/dL (3.4-5.0); ANION GAP 16.6 mmol/L (8-16); BILIRUBIN - TOTAL 0.6 mg/dL (0.2-1.3); CALCIUM 8.7 mg/dL (8.5-10.1); CARBON DIOXIDE 19.4 mmol/L (21.0-32.0); CREATININE - SERUM 0.8 mg/dL (0.6-1.3); PROTEIN - SERUM 6.4 g/dL (6.4-8.2)
[2019-08-31 08:48] VITALS: BP 131/63
[2019-08-31 09:15] LABS: BASOPHILS 0.2 % (0-2); EOSINOPHILS 5.5 % (0-7); HEMATOCRIT 40.6 % (36.0-48.0); HEMOGLOBIN 13.3 g/dL (12-16); LYMPHOCYTES 25.4 % (15-50); MCH 30.4 pg (26.0-34.0); MCHC 32.8 g/dL (31.0-37.0); MCV 92.9 fL (80.0-100.0); MEAN PLATELET VOLUME 10.4 fL (7.4-10.4); MONOCYTES 13.7 % (2-11); NEUTROPHILS 54.2 % (40-80); PLATELET COUNT 125 10x3/uL (130-400); RBC 4.37 10x6/uL (4.00-5.40); RDW 14.1 % (11.5-14.5); WBC 4.2 10x3/uL (4.8-10.8)
[2019-08-31 16:32] VITALS: BP 126/60
--- NOTE | 2019-08-31 18:30 | NUR ---
SPOKE WITH DANNY COTTON (POA) VERIFIED BY [place] DOCUMENTS, WISHES TO BE NOTIFIED WITH PATIENT DISCHARGES. ALSO WANTS ROBERT COTTON (DAUGHT IN LAW) TO BE AUTHORIZED TO CALL FOR UPDATES.
--- NOTE | 2019-08-31 19:50 | NUR ---
I HAVE ROUNDED ON PT PT IS ALERT CONFUSED TO SITYUATION AND TIME DOES NOT SEEM TO UNDERSTAND USE OF CALL LIGHT I WILL VISUALLY INSPECT PT OFTEN BED LOW AND LOCKED AND CALL LIGHT IS IN REACH
[2019-08-31 21:21] VITALS: BP 124/58
[2019-09-01] VITALS: BP 117/55
[2019-09-01 04:00] VITALS: BP 145/73
[2019-09-01 06:22] LABS: ANION GAP 11.4 mmol/L (8-16); BILIRUBIN - TOTAL 0.59 mg/dL (0.2-1.3); CALCIUM 8.6 mg/dL (8.5-10.1); POTASSIUM - SERUM 3.4 mmol/L (3.5-5.1); PROTEIN - SERUM 6.3 g/dL (6.4-8.2)
[2019-09-01 06:34] LABS: BASOPHILS 0.2 % (0-2); EOSINOPHILS 5.3 % (0-7); HEMATOCRIT 36.8 % (36.0-48.0); HEMOGLOBIN 12.1 g/dL (12-16); IMMATURE GRANULOCYTES 0.9 % (0-5); LYMPHOCYTES 24.1 % (15-50); MCH 30.3 pg (26.0-34.0); MCHC 32.9 g/dL (31.0-37.0); MCV 92.2 fL (80.0-100.0); MONOCYTES 14.2 % (2-11); NEUTROPHILS 55.3 % (40-80); PLATELET COUNT 139 10x3/uL (130-400); RBC 3.99 10x6/uL (4.00-5.40); RDW 14.1 % (11.5-14.5); WBC 4.5 10x3/uL (4.8-10.8)
--- NOTE | 2019-09-01 08:30 | NUR ---
PT LAYING DOWN IN BED, RR EVEN AND UNLABORED. PUREWICK WAS NOT HOOKED TO SUCTION CORRECTLY AND LEAKED ON HER PADS. PADS CHANGED AND PT PULLED UP IN BED AND REPOSITIONED TO COMFORT. CALL LIGHT WITHIN REACH. BED IN LOWEST POSITION. PUREWICK FIXED AND IN PLACE. WILL CONTINUE TO MONITOR.
[2019-09-01 09:41] VITALS: BP 129/61
--- NOTE | 2019-09-01 14:48 | NUR ---
I have reviewed this patient and I concur with the Shift Assessment completed by the Licensed Practical Nurse today this shift.
[2019-09-01 17:39] VITALS: BP 130/61
[2019-09-01 20:22] VITALS: BP 111/62
--- NOTE | 2019-09-01 22:11 | MORECARE ---
CASE MANAGEMENT DISCHARGE SUMMARY PATIENT: JUDSON COTTON UNIT: [id number] ADM DATE: 08/29/19 AGE: 74 : 44 SEX: F ROOM/BED: D.2131 AUTHOR: USHA PIPER PHYSICIAN: REFERRING PHYSICIAN: MAHENDRA ADAMES DO DATE OF SERVICE: 09/01/19 Discharge Plan Patient Name: JUDSON COTTON Facility: [facility]:[place] : 1945 Planned Disposition: Anticipated Discharge Date: Discharge Date: Expected LOS: Initial Reviewer: [email or web address] Initial Review Date: 08/29/2019 Generated: 09/01/19 11:10 pm Patient Name: JUDSON COTTON Page [id number] at 2211 All edits/amendments must be made on the electronic document DICTATION DATE: 09/01/192209 TIGHT COOPER: JENNIFER 09/01/192209 RPT#: [id number] DC DATE: STATUS: ADM IN [facility] [address] [place] [address] END OF REPORT
[2019-09-01 22:24] VITALS: BP 121/58
[2019-09-02 04:04] VITALS: BP 128/63
[2019-09-02 05:11] LABS: BASOPHILS 0.2 % (0-2); EOSINOPHILS 5.9 % (0-7); HEMATOCRIT 38.8 % (36.0-48.0); HEMOGLOBIN 12.7 g/dL (12-16); IMMATURE GRANULOCYTES 0.7 % (0-5); LYMPHOCYTES 25.7 % (15-50); MCH 29.7 pg (26.0-34.0); MCHC 32.7 g/dL (31.0-37.0); MCV 90.9 fL (80.0-100.0); MEAN PLATELET VOLUME 9.9 fL (7.4-10.4); MONOCYTES 13.6 % (2-11); NEUTROPHILS 53.9 % (40-80); PLATELET COUNT 141 10x3/uL (130-400); RBC 4.27 10x6/uL (4.00-5.40); RDW 13.9 % (11.5-14.5)
[2019-09-02 06:06] LABS: ALBUMIN 3.1 g/dL (3.4-5.0); ANION GAP 13.4 mmol/L (8-16); BILIRUBIN - TOTAL 0.5 mg/dL (0.2-1.3); CALCIUM 8.7 mg/dL (8.5-10.1); CARBON DIOXIDE 24.1 mmol/L (21.0-32.0); CREATININE - SERUM 0.9 mg/dL (0.6-1.3); MAGNESIUM - SERUM 2.1 mg/dL (1.8-2.4); POTASSIUM - SERUM 3.5 mmol/L (3.5-5.1); PROTEIN - SERUM 6.6 g/dL (6.4-8.2)
[2019-09-02 08:46] VITALS: BP 128/62
--- NOTE | 2019-09-02 12:03 | MORECARE ---
CASE MANAGEMENT DISCHARGE SUMMARY PATIENT: JUDSON COTTON UNIT: [id number] ADM DATE: 08/29/19 AGE: 74 : 44 SEX: F ROOM/BED: D.2131 AUTHOR: USHA PIPER PHYSICIAN: REFERRING PHYSICIAN: MAHENDRA ADAMES DO DATE OF SERVICE: 09/02/19 Discharge Plan Patient Name: JUDSON COTTON Facility: [facility]:[place] : 1945 Planned Disposition: Anticipated Discharge Date: Discharge Date: Expected LOS: Initial Reviewer: [email or web address] Initial Review Date: 08/29/2019 Generated: 09/02/19 1:02 pm External Providers External Provider: [facility] Next Contact Date: Service Request Date: Service Type: Resolution: Reviewer: Comments: Last DP export: 09/01/19 9:11 p Patient Name: JUDSON COTTON Page 69711 at 1203 All edits/amendments must be made on the electronic document DICTATION DATE: 09/02/19 1202 SENIOR MANUFACTURING SUPERVISOR: JENNIFER 09/02/19 1202 RPT#: [id number] DC DATE: STATUS: ADM IN [facility] [address] [place] [address] END OF REPORT
[2019-09-02 12:11] VITALS: BP 107/61
--- NOTE | 2019-09-02 12:33 | NUR ---
PT FED SELF BREAKFAST WITH JUST ASSISTANCE WITH SET UP. PT WOULD NOT FEED SELF FOR LUNCH. QUED PT ON INSTRUCTIONS OM HOW TO FEED SELF AND PT WOULD NOT GIVE A RESPONSE. THIS NURSE FED PT LUNCH. SPOKE WITH PT'S FAMILY MEMBER ROBERT OVER THE PHONE AND SHE STTAES WHEN PT HAS A UTI THIS HAPPENS AND PT WILL BECOME LETHARGIC. I VERBALIZED UNDERSTANDING.
--- NOTE | 2019-09-02 13:40 | NUR ---
PT INCONTINENT OF URINE. COMPLETE LINEN CHANGE DONE. PURE WICK CATHETER SET UP. PT TOLERATED WELL. BED LOW. CL IN REACH.
--- NOTE | 2019-09-02 13:54 | NUR ---
Nutrition Follow-up: Pt in droplet isolation; covid-19 positive. Nursing reports pt fed herself breakfast but then had to be fed lunch. Noted possible d/c back to [facility] tomorrow. Diet: Cardiac No new wt; last wt: 165# (08/29) Last recorded BM: 08/29 Labs noted: Alb 3.1 Meds noted: Lactulose, vitamin D, NS @ KVO, Protonix, electrolyte protocol -Encourage PO intake and honor food preferences within diet restrictions. -Offer nutrition supplements. -Monitor wt; noted daily wts ordered. -RD following.
[2019-09-02 18:05] VITALS: BP 117/67
[2019-09-02 19:37] VITALS: BP 110/56
--- NOTE | 2019-09-02 22:02 | NUR ---
PT LYING IN BED AWAKE AND ALERT TO PERSON. NO SIGNS OR SYMPTOMS OF DISTRESS NOTED. RESPIRATIONS EVEN AND UNLABORED. PT HAS NO COMPLAINTS AT THIS TIME. CALL LIGHT AND OTHER PERSONAL ITEMS WITH IN REACH. BED ALARM ON AND ACTIVE. BED IS IN LOWEST POSITION. WILL CONTINUE TO MONITOR
[2019-09-02 23:21] VITALS: BP 113/49
--- NOTE | 2019-09-03 03:08 | NUR ---
pt lying in bed no signs of distress. pt repositioned for comfort. call light and other personal items with in reach. will continue to monitor
[2019-09-03 04:09] VITALS: BP 104/65
[2019-09-03 05:15] LABS: BASOPHILS 0.3 % (0-2); EOSINOPHILS 6.7 % (0-7); HEMOGLOBIN 12.7 g/dL (12-16); IMMATURE GRANULOCYTES 1.3 % (0-5); MCH 30.1 pg (26.0-34.0); MCHC 32.6 g/dL (31.0-37.0); MCV 92.4 fL (80.0-100.0); MEAN PLATELET VOLUME 10.4 fL (7.4-10.4); MONOCYTES 14.9 % (2-11); NEUTROPHILS 48.8 % (40-80); PLATELET COUNT 148 10x3/uL (130-400); RBC 4.22 10x6/uL (4.00-5.40); RDW 13.9 % (11.5-14.5); WBC 3.9 10x3/uL (4.8-10.8)
[2019-09-03 06:30] LABS: ALBUMIN 3.1 g/dL (3.4-5.0); ANION GAP 12.7 mmol/L (8-16); BILIRUBIN - TOTAL 0.54 mg/dL (0.2-1.3); CALCIUM 8.9 mg/dL (8.5-10.1); CARBON DIOXIDE 24.9 mmol/L (21.0-32.0); MAGNESIUM - SERUM 2.1 mg/dL (1.8-2.4); POTASSIUM - SERUM 3.6 mmol/L (3.5-5.1); PROTEIN - SERUM 6.5 g/dL (6.4-8.2)
--- NOTE | 2019-09-03 07:47 | MORECARE ---
CASE MANAGEMENT DISCHARGE SUMMARY PATIENT: JUDSON COTTON UNIT: [id number] ADM DATE: 08/29/19 AGE: 74 : 44 SEX: F ROOM/BED: D.2131 AUTHOR: USHA PIPER PHYSICIAN: REFERRING PHYSICIAN: MAHENDRA ADAMES DO DATE OF SERVICE: 09/03/19 Discharge Plan Patient Name: JUDSON COTTON Facility: [facility]:[place] : 1945 Planned Disposition: Anticipated Discharge Date: Discharge Date: Expected LOS: Initial Reviewer: [email or web address] Initial Review Date: 08/29/2019 Generated: 09/03/19 8:46 am Last DP export: 09/02/19 11:03 a Patient Name: JUDSON COTTON Page [id number] at 0747 All edits/amendments must be made on the electronic document DICTATION DATE: 09/03/19746 ASSEMBLY TECHNICIAN: DM 09/03/19746 RPT#: [id number] DC DATE: STATUS: ADM IN [facility] [address] [place] [address] END OF REPORT
[2019-09-03] MEDS ORDERED: OMNICEF300 MG PO (13:51)
--- NOTE | 2019-09-03 18:48 | MORECARE ---
CASE MANAGEMENT DISCHARGE SUMMARY PATIENT: JUSDON COTTON UNIT: [id number] ADM DATE: 08/29/19 AGE: 74 : 44 SEX: F ROOM/BED: D.[facility] AUTHOR: USHA PIPER PHYSICIAN: REFERRING PHYSICIAN: MAHENDRA ADAMES DO DATE OF SERVICE: 09/03/19 Discharge Plan Patient Name: JUDSON COTTON Facility: [facility]:[place] : 1945 Planned Disposition: Anticipated Discharge Date: Discharge Date: 09/03/2019 Expected LOS: Initial Reviewer: [email or web address] Initial Review Date: 08/29/2019 Generated: 09/03/19 7:47 pm Comments DCP- Discharge Planning Updated by [email or web address]: Mavis Gutierrez on 09/03/19 5:[address] DC plan: CM unable to meet with patient to complete initial dc planning assessment because of COVID isolation. Patient confused and unable to talk with pt on the phone. CM called Melina (son) at [phone] to update condition. Patient is currently in a halfway bed at [facility]. Melina is in agreement with his mother returning to [facility]. CM called [facility] and spoke with Aditya at [phone] for DC. Aditya states pt has been accepted back and will return to 3 ott on the memory unit/isolation ott in a terminal make up operator bed. The nurse can call report to the charge nurse on 3 ott. DC IMM explained via phone to Nel who verbalized understanding. Imm will be sent by certified mail with return receipt requested. Patient denied further known discharge needs at this time. . Transportation provider at discharge will be [facility] transportation van. CM will continue to follow and will assist as needed with dc plans/needs. Mavis Gutierrez Coverage Notice Reviewer: [id number] - Mavis Gutierrez Notice Issued Date-Time: 09/03/2019 13:00 Notice Type: IM Discharge Notice Notice Delivered To: Family Member Relationship to Patient: Son [employer]frame Systems Programmer Name: Melina Delivery Method: EXPR - Express Mail Analy Days: Prior Verbal Notification: Yes Recipient Understood Notice: Yes Recipient Signature: Yes Med Rec Note Co-signed by Attending: Coverage Notice Comment: DC IMM explained via phone. verbalized understanding. Imm will be sent by certified mail with return receipt requested Last DP export: 09/03/19 6:47 am Patient Name: JUDSON COTTON Page [id number] at 1848 All edits/amendments must be made on the electronic document DICTATION DATE: 09/03/191846 MILIEU COUNSELOR: JENNIFER 09/03/191846 RPT#: [id number] DC DATE:09/03/19 STATUS: DIS IN [facility] [address] [place] [address] END OF REPORT
--- NOTE | 2019-09-04 18:05 | MORECARE ---
CASE MANAGEMENT DISCHARGE SUMMARY PATIENT: JUDSON COTTON UNIT: [id number] ADM DATE: 08/29/19 AGE: 74 : 43 SEX: F ROOM/BED: D[facility] AUTHOR: USHA PIPER PHYSICIAN: REFERRING PHYSICIAN: MAHENDRA ADAMES DO DATE OF SERVICE: 09/04/19 Discharge Plan Patient Name: JUDSON COTTON Facility: [facility]:[place] : 1945 Planned Disposition: Anticipated Discharge Date: Discharge Date: 09/03/2019 Expected LOS: Initial Reviewer: [email or web address] Initial Review Date: 08/29/2019 Generated: 09/04/19 7:04 pm Comments DCP- Discharge Planning Updated by [email or web address]: Mavis Gutierrez on 09/03/19 5:[address] DC plan: CM unable to meet with patient to complete initial dc planning assessment because of COVID isolation. Patient confused and unable to talk with pt on the phone. CM called Melina (son) at [phone] to update condition. Patient is currently in a jail bed at [facility]. Melina is in agreement with his mother returning to [facility]. CM called [facility] and spoke with Aditya at [phone] for DC. Aditya states pt has been accepted back and will return to 3 ott on the memory unit/isolation ott in a terminal block assembler bed. The nurse can call report to the charge nurse on 3 ott. DC IMM explained via phone to Nel who verbalized understanding. Imm will be sent by certified mail with return receipt requested. Patient denied further known discharge needs at this time. . Transportation provider at discharge will be [facility] transportation van. CM will continue to follow and will assist as needed with dc plans/needs. Mavis Gutierrez Coverage Notice Reviewer: [id number] - Mavis Gutierrez Notice Issued Date-Time: 09/03/2019 13:00 Notice Type: IM Discharge Notice Notice Delivered To: Family Member Relationship to Patient: Son [employer] Operator Name: Melina Delivery Method: EXPR - Express Mail Analy Days: Prior Verbal Notification: Yes Recipient Understood Notice: Yes Recipient Signature: Yes Med Rec Note Co-signed by Attending: Coverage Notice Comment: DC IMM explained via phone. verbalized understanding. Imm will be sent by certified mail with return receipt requested Last DP export: 09/03/19 5:48 pm Patient Name: JUDSON COTTON Page [id number] at 1805 All edits/amendments must be made on the electronic document DICTATION DATE: 09/04/191803 HSE COORDINATOR: JENNIFER 09/04/191803 RPT#: [id number] DC DATE:09/03/19 STATUS: DIS IN [facility] [address] [place] [address] END OF REPORT
== END 2019-09-03 16:25 | DRG 689 ==
LOC: D.ER 14:21 → D.M2 17:25
PROVIDERS: Family Medicine; ADMIT Family Medicine; ATTEND Family Medicine
DX: N39.0 Urinary tract infection, site not specified (principal); U07.1 COVID-19; G82.50 Quadriplegia, unspecified; F02.81 Dementia in other diseases classified elsewhere, unspecified severity, with behavioral disturbance; F41.8 Other specified anxiety disorders; G30.9 Alzheimer's disease, unspecified; K58.0 Irritable bowel syndrome with diarrhea; E78.5 Hyperlipidemia, unspecified; I10 Essential (primary) hypertension